=== PATIENT | male | born 1970 | race Caucasian/White ===

== ENCOUNTER 2017-11-06 13:53 | Inpatient (IN) | payer BC ==
[~2017-11-06] VITALS: Ht 177.8 cm; Wt 115.3 kg
[2017-11-06 13:57] VITALS: BP 111/60; PULSE 85; RESP 18; TEMP 98; O2SAT 96
[2017-11-06] MEDS ORDERED: ONDANSETRON HCL 4 MG/2 ML VIAL IV PUSH ONE (16:00)
[2017-11-06] MEDS ORDERED: SODIUM CHLOR 0.9% 1000 ML INJ 1,000 ML IV ONE (16:00)
--- NOTE | 2017-11-06 16:11 | PD ---
HPI Chief Complaint: Cold / Flu Symptoms Time Seen by Provider: 15:51 Travel History International Travel<30 days: No Contact w/Intl Traveler<30days: No Traveled to known affect area: No History of Present Illness HPI 46 year old male presents to emergency department complaining of subjective fever, chills, headache with occasional nausea for approximately 7 days. Patient states that he has had a difficult time drinking fluids because he immediately feels nauseous. He denies vomiting, diarrhea. Denies cough or congestion. Denies sick contacts. 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 Says he visits [place] for several months of the year and usually goes hunting and is always outdoor. Patient states that he is "never sick" and feels like something is really wrong with him. He denies chest pain or shortness of breath. Denies abdominal pain. His medical history is significant for diabetes. Patient denies any unusual rashes or neck stiffness. Patient states that he drinks occasionally but is not a regular activity for him. PFSH Past Medical History Cardiovascular Problems: Yes (HTN) Diabetes: Yes Social History Tobacco Use: No Allergies-Medications (Allergen,Severity, Reaction): Coded Allergies: No Known Allergies (Unverified , 11/06/17) Review of Systems Except as stated in HPI: all other systems reviewed are Neg Physical Exam Narrative GENERAL: Well-developed well-nourished in mild distress SKIN: Warm and dry. HEAD: Atraumatic. Normocephalic. EYES: Pupils equal and round. No scleral icterus. No injection or drainage. ENT: No nasal bleeding or discharge. Mucous membranes pink and moist. NECK: Trachea midline. No JVD. No meningismus CARDIOVASCULAR: Regular rate and rhythm. RESPIRATORY: No accessory muscle use. Clear to auscultation. Breath sounds equal bilaterally. GASTROINTESTINAL: Abdomen protuberant soft, non-tender, nondistended. Hepatic and splenic margins not palpable. MUSCULOSKELETAL: Extremities without clubbing, cyanosis, or edema. No obvious deformities. NEUROLOGICAL: Awake and alert. No obvious cranial nerve deficits. Motor grossly within normal limits. Five out of 5 muscle strength in the arms and legs. Normal speech. PSYCHIATRIC: Appropriate mood and affect; insight and judgment normal. Data Data Last Documented VS Vital Signs Date Time Temp Pulse Resp B/P (MAP) Pulse Ox O2 Delivery O2 Flow Rate FiO2 11/06/17 13:57 98.0 85 18 111/60 (77) 96 Orders Orders Complete Blood Count With Diff (11/06/17 14:09) Comprehensive Metabolic Panel (11/06/17 14:09) Urinalysis - C+S If Indicated (11/06/17 15:59) Ondansetron Inj (Zofran Inj) (11/06/17 16:00) Lipase (11/06/17 15:59) Sodium Chlor 0.9% 1000 Ml Inj (Ns 1000 M (11/06/17 16:00) Influenzae A/B Antigen (11/06/17 15:59) Prochlorperazine Inj (Compazine Inj) (11/06/17 18:00) Blood Culture (11/06/17 18:03) Lactic Acid Sepsis Protocol (11/06/17 18:03) Prothrombin Time / Inr (Pt) (11/06/17 18:18) Act Partial Throm Time (Ptt) (11/06/17 18:18) Ceftriaxone Inj (Rocephin Inj) (11/06/17 18:30) Admit Order (Ed Use Only) (11/06/17 19:12) Labs Laboratory Tests Test 11/06/17 15:50 11/06/17 17:35 11/06/17 18:50 White Blood Count 7.6 TH/MM3 Red Blood Count 4.30 MIL/MM3 Hemoglobin 13.6 GM/DL Hematocrit 37.9 % Mean Corpuscular Volume 88.1 FL Mean Corpuscular Hemoglobin 31.6 PG Mean Corpuscular Hemoglobin Concent 35.9 % Red Cell Distribution Width 15.0 % Platelet Count 145 TH/MM3 Mean Platelet Volume 9.3 FL Neutrophils (%) (Auto) 77.6 % Lymphocytes (%) (Auto) 9.7 % Monocytes (%) (Auto) 10.1 % Eosinophils (%) (Auto) 2.1 % Basophils (%) (Auto) 0.5 % Neutrophils # (Auto) 5.9 TH/MM3 Lymphocytes # (Auto) 0.7 TH/MM3 Monocytes # (Auto) 0.8 TH/MM3 Eosinophils # (Auto) 0.2 TH/MM3 Basophils # (Auto) 0.0 TH/MM3 CBC Comment AUTO DIFF Differential Total Cells Counted 100 Neutrophils % (Manual) 72 % Band Neutrophils % 18 % Lymphocytes % 2 % Monocytes % 4 % Eosinophils % 2 % Neutrophils # (Manual) 7.0 TH/MM3 Myelocytes 2 % Differential Comment FINAL DIFF MANUAL Platelet Estimate LOW Platelet Morphology Comment NORMAL Blood Urea Nitrogen 43 MG/DL Creatinine 1.70 MG/DL Random Glucose 299 MG/DL Total Protein 7.5 GM/DL Albumin 2.5 GM/DL Calcium Level 8.5 MG/DL Alkaline Phosphatase 116 U/L Aspartate Amino Transf (AST/SGOT) 50 U/L Alanine Aminotransferase (ALT/SGPT) 51 U/L Total Bilirubin 0.7 MG/DL Sodium Level 130 MEQ/L Potassium Level 3.8 MEQ/L Chloride Level 95 MEQ/L Carbon Dioxide Level 27.3 MEQ/L Anion Gap 8 MEQ/L Estimat Glomerular Filtration Rate 44 ML/MIN Urine Color YELLOW Urine Turbidity CLEAR Urine pH 5.5 Urine Specific [place] 1.011 Urine Protein TRACE mg/dL Urine Glucose (UA) 150 mg/dL Urine Ketones NEG mg/dL Urine Occult Blood NEG Urine Nitrite NEG Urine Bilirubin NEG Urine Urobilinogen LESS THAN 2.0 MG/DL Urine Leukocyte Esterase NEG Urine RBC 1 /hpf Urine WBC 2 /hpf Microscopic Urinalysis Comment CULT NOT INDICATED Prothrombin Time 10.4 SEC Prothromb Time International Ratio 1.0 RATIO Activated Partial Thromboplast Time 29.4 SEC Lactic Acid Level 0.5 mmol/L MDM Medical Decision Making Medical Screen Exam Complete: Yes Emergency Medical Condition: Yes Differential Diagnosis Influenza, viral syndrome, meningitis Narrative Course 46 year old male presents to emergency department complaining of subjective fever, chills, headache with occasional nausea for approximately 7 days. Patient states that he has had a difficult time drinking fluids because he immediately feels nauseous. He denies vomiting, diarrhea. Denies cough or congestion. Denies sick contacts. 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 Says he visits [place] for several months of the year and usually goes hunting and is always outdoor. Patient states that he is "never sick" and feels like something is really wrong with him. He denies chest pain or shortness of breath. Denies abdominal pain. His medical history is significant for diabetes. Patient denies any unusual rashes or neck stiffness. Patient states that he drinks occasionally but is not a regular activity for him. Vital signs stable. Patient was administered 1 L normal saline with improvement in symptoms. Labs demonstrate elevated creatinine, bandemia, and headaches. There is concern for viral meningitis because of the onset of symptoms, headache. Patient refuses lumbar puncture today. Please see Dr. Fernández's note regarding this patient. Patient will be admitted to observation. Thank you Dr. Alegria particularly this patient. Diagnosis Primary Impression: Bandemia Additional Impressions: Elevated serum creatinine Headache Qualified Codes: G44.89 - Other headache syndrome Admitting Information Admitting Physician Requests: Observation Condition: Stable Jacqueline Maloney Nov 06, 2017 16:11
[2017-11-06 16:22] LABS: ALKALINE PHOSPHATASE 116 U/L (45-117); TOTAL BILIRUBIN ADULT 0.7 MG/DL (0.2-1.0); TOTAL PROTEIN 7.5 GM/DL (6.4-8.2)
[2017-11-06 16:24] LABS: AUTOMATED NEUTROPHIL # 5.9 TH/MM3 (1.8-7.7); BASOPHIL % 0.5 % (0.0-2.0); EOSINOPHIL # 0.2 TH/MM3 (0-0.4); EOSINOPHIL % 2.1 % (0.0-4.0); HEMATOCRIT 37.9 % (39.0-51.0); HEMOGLOBIN 13.6 GM/DL (13.0-17.0); LYMPH % 9.7 % (9.0-44.0); LYMPHOCYTE # 0.7 TH/MM3 (1.0-4.8); MEAN CELL VOLUME 88.1 FL (80.0-100.0); MEAN CORPUSCULAR HEMOGLOBIN 31.6 PG (27.0-34.0); MEAN CORPUSCULAR HGB CONC 35.9 % (32.0-36.0); MEAN PLATELET VOLUME 9.3 FL (7.0-11.0); MONO % 10.1 % (0.0-8.0); MONOCYTE # 0.8 TH/MM3 (0-0.9); NEUT % 77.6 % (16.0-70.0); PLATELET COUNT 145 TH/MM3 (150-450); WHITE BLOOD COUNT 7.6 TH/MM3 (4.0-11.0)
[2017-11-06 16:33] LABS: ALBUMIN 2.5 GM/DL (3.4-5.0); ALT (GPT) 51 U/L (12-78); AST (GOT) 50 U/L (15-37); BICARBONATE 27.3 MEQ/L (21.0-32.0); BLOOD UREA NITROGEN 43 MG/DL (7-18); CALCIUM 8.5 MG/DL (8.5-10.1); CHLORIDE 95 MEQ/L (98-107); GLOMERULAR FILTRATION RATE 44 ML/MIN (>89); GLUCOSE,RANDOM 299 MG/DL (74-106); SODIUM (NA) 130 MEQ/L (136-145)
[2017-11-06 17:11] LABS: BANDS 18 % (0-6); LYMPHOCYTES 2 % (9-44); MONOCYTES 4 % (0-8); MYELOCYTES 2 % (0-0); POLYS (SEG NEUTROPHILS) 72 % (16-70)
[2017-11-06 17:58] LABS: BILIRUBIN, URINE NEG (NEG); BLOOD, URINE NEG (NEG); GLUCOSE,URINE 150 mg/dL (NEG); KETONE, URINE NEG (NEG); NITRITE,URINE NEG (NEG); PH, URINE 5.5 (5.0-8.5); URINE COLOR YELLOW (YELLW/STRAW); URINE LEUKOCYTE ESTERASE NEG (NEG)
[2017-11-06] MEDS ORDERED: PROCHLORPERAZINE INJ 10 MG/2 ML VIAL IV PUSH ONE (18:00)
--- NOTE | 2017-11-06 18:03 | PD ---
Physical Exam Narrative I, Dr. Fernández, have reviewed the advance practice practitioner's documentation and am in agreement, met with the patient face to face, made the diagnosis, and the medical decision making was done by me. *My assessment and Findings: Migraine headache vs. sinus headache vs. influenza vs. viral meningitis 46yo M with PMH of DM here with intermittent fever and throbbing headache for 1 week. Also with generalized muscleaches. Pt said he has some burning in his eyes but no visual changes. Headache is generalized and associated with photophobia. Denies any chest pain, neck pain, sob, cough, n/v, abdominal pain , focal weakness or numbness. Pt has been taking acetaminophen and ibuprofen and fever has gone down but not headache. Last acetaminophen 10am. Labs reviewed, no leukocytosis but there is bandemia at 18%. Mild thrombocytopenia at 145. Glucose is elevated at 299. BUN/creatinine is elevated at 43/1.70. No prior to compare to. UA negative. Influenza negative. Pt given NS IVF, zofran and compazine. Pt has no nuchal rigidity or focal neurologic deficits on exam. However, pt has bandemia, signs of end organ damage and no other source. Blood cultures drawn, lactic acid added and coagulation profile added. Pt is adamantly refusing lumbar puncture. Will cover with ceftriaxone 2gm IV and vancomycin IV for possible meningitis. Pt to be admitted for sepsis with bandemia with no clear source. Data Data Last Documented VS Vital Signs Date Time Temp Pulse Resp B/P (MAP) Pulse Ox O2 Delivery O2 Flow Rate FiO2 11/06/17 13:57 98.0 85 18 111/60 (77) 96 Orders Orders Complete Blood Count With Diff (11/06/17 14:09) Comprehensive Metabolic Panel (11/06/17 14:09) Urinalysis - C+S If Indicated (11/06/17 15:59) Ondansetron Inj (Zofran Inj) (11/06/17 16:00) Lipase (11/06/17 15:59) Sodium Chlor 0.9% 1000 Ml Inj (Ns 1000 M (11/06/17 16:00) Influenzae A/B Antigen (11/06/17 15:59) Prochlorperazine Inj (Compazine Inj) (11/06/17 18:00) Blood Culture (11/06/17 18:03) Lactic Acid Sepsis Protocol (11/06/17 18:03) Prothrombin Time / Inr (Pt) (11/06/17 18:18) Act Partial Throm Time (Ptt) (11/06/17 18:18) Ceftriaxone Inj (Rocephin Inj) (11/06/17 18:30) Admit Order (Ed Use Only) (11/06/17 19:12) Labs Laboratory Tests Test 11/06/17 15:50 11/06/17 17:35 11/06/17 18:50 White Blood Count 7.6 TH/MM3 Red Blood Count 4.30 MIL/MM3 Hemoglobin 13.6 GM/DL Hematocrit 37.9 % Mean Corpuscular Volume 88.1 FL Mean Corpuscular Hemoglobin 31.6 PG Mean Corpuscular Hemoglobin Concent 35.9 % Red Cell Distribution Width 15.0 % Platelet Count 145 TH/MM3 Mean Platelet Volume 9.3 FL Neutrophils (%) (Auto) 77.6 % Lymphocytes (%) (Auto) 9.7 % Monocytes (%) (Auto) 10.1 % Eosinophils (%) (Auto) 2.1 % Basophils (%) (Auto) 0.5 % Neutrophils # (Auto) 5.9 TH/MM3 Lymphocytes # (Auto) 0.7 TH/MM3 Monocytes # (Auto) 0.8 TH/MM3 Eosinophils # (Auto) 0.2 TH/MM3 Basophils # (Auto) 0.0 TH/MM3 CBC Comment AUTO DIFF Differential Total Cells Counted 100 Neutrophils % (Manual) 72 % Band Neutrophils % 18 % Lymphocytes % 2 % Monocytes % 4 % Eosinophils % 2 % Neutrophils # (Manual) 7.0 TH/MM3 Myelocytes 2 % Differential Comment FINAL DIFF MANUAL Platelet Estimate LOW Platelet Morphology Comment NORMAL Blood Urea Nitrogen 43 MG/DL Creatinine 1.70 MG/DL Random Glucose 299 MG/DL Total Protein 7.5 GM/DL Albumin 2.5 GM/DL Calcium Level 8.5 MG/DL Alkaline Phosphatase 116 U/L Aspartate Amino Transf (AST/SGOT) 50 U/L Alanine Aminotransferase (ALT/SGPT) 51 U/L Total Bilirubin 0.7 MG/DL Sodium Level 130 MEQ/L Potassium Level 3.8 MEQ/L Chloride Level 95 MEQ/L Carbon Dioxide Level 27.3 MEQ/L Anion Gap 8 MEQ/L Estimat Glomerular Filtration Rate 44 ML/MIN Lipase 865 U/L Urine Color YELLOW Urine Turbidity CLEAR Urine pH 5.5 Urine Specific [place] 1.011 Urine Protein TRACE mg/dL Urine Glucose (UA) 150 mg/dL Urine Ketones NEG mg/dL Urine Occult Blood NEG Urine Nitrite NEG Urine Bilirubin NEG Urine Urobilinogen LESS THAN 2.0 MG/DL Urine Leukocyte Esterase NEG Urine RBC 1 /hpf Urine WBC 2 /hpf Microscopic Urinalysis Comment CULT NOT INDICATED Prothrombin Time 10.4 SEC Prothromb Time International Ratio 1.0 RATIO Activated Partial Thromboplast Time 29.4 SEC Lactic Acid Level 0.5 mmol/L MDM Supervised Visit with MIHIR: Yes Diagnosis Primary Impression: Sepsis Qualified Codes: A41.9 - Sepsis, unspecified organism Additional Impression: Bandemia Admitting Information Admitting Physician Requests: Admit Kasandra Fernández DO Nov 06, 2017 18:03
[2017-11-06] MEDS ORDERED: cefTRIAXone INJ 2,000 MG in SODIUM CHLORIDE 0.9% INJ 100 ML IV ONE (18:30)
[2017-11-06] MEDS ORDERED: VANCOMYCIN INJ 1,250 MG in SODIUM CHLOR 0.9% 250 ML INJ 250 ML IV ONE (18:30)
[2017-11-06 19:21] LABS: PROTHROMBIN TIME - PATIENT 10.4 SEC (9.8-11.6)
[2017-11-06] MEDS ORDERED: ONDANSETRON HCL 4 MG/2 ML VIAL IVP PRN (19:45)
[2017-11-06] MEDS ORDERED: SENNOSIDES 8.6 MG TAB PO PRN (19:45)
[2017-11-06] MEDS ORDERED: MAGNESIUM HYDROXIDE SUSP 30 ML CUP PO PRN (19:45)
[2017-11-06] MEDS ORDERED: Vancomycin Consult Pharmacy 1 EA OTHER SCH (19:45)
[2017-11-06] MEDS ORDERED: NALOXONE HCL 0.4 MG/ML AMP IV PUSH PRN (19:45)
[2017-11-06] MEDS ORDERED: SODIUM CHLORIDE 0.9% FLUSH 10 ML FLUSH IV FLUSH PRN (19:45)
[2017-11-06] MEDS ORDERED: BISACODYL 10 MG SUPP RECTAL PRN (19:45)
[2017-11-06] MEDS ORDERED: LACTULOSE SYRUP 20 GM/30 ML CUP PO PRN (19:45)
[2017-11-06 20:39] VITALS: BP 117/62
[2017-11-06 20:54] VITALS: BP 119/66; PULSE 92; RESP 18; TEMP 100.1; O2SAT 95
[2017-11-06] MEDS ORDERED: VANCOMYCIN INJ 2,500 MG in SODIUM CHLORID 0.9% 500 ML INJ 500 ML IV ONE (21:00)
[2017-11-06] MEDS: DOCUSATE SODIUM 50 MG/SENNA 8.6 MG TAB PO SCH (21:00)
[2017-11-06] MEDS: SODIUM CHLORIDE 0.9% FLUSH 10 ML FLUSH IV FLUSH SCH (21:08)
[2017-11-06] MEDS: SODIUM CHLOR 0.9% 1000 ML INJ 1,000 ML IV SCH (21:09)
[2017-11-06] MEDS ORDERED: GLYB5TAB3 PO (21:30)
[2017-11-06] MEDS ORDERED: LISI10TA PO (21:30)
[2017-11-06] MEDS ORDERED: ATOR20TA15 PO (21:30)
[2017-11-06] MEDS ORDERED: NEBI20 PO (21:30)
[2017-11-06] MEDS ORDERED: PIOG15TA5 PO (21:30)
[2017-11-06] MEDS ORDERED: METF500T PO (21:30)
--- NOTE | 2017-11-06 21:44 | HHI.HP ---
HPI Service [facility] Primary Care Physician No Primary Care Physician Admission Diagnosis bandemia, elevated creatinine, headache, concern for meningitis Diagnoses: Travel History International Travel<30 Days: No Contact w/Intl Traveler <30 Da: No Traveled to Known Affected Are: No History of Present Illness 46-year-old male with a past medical history significant for hypertension and type 2 diabetes mellitus presents to the emergency department with a seven-day history of fever/chills and generalized malaise. The patient reports he has had a headache with photophobia 3 days. He also reports decreased by mouth intake secondary to not feeling well. There was concern for meningitis in the emergency department however the patient refused LP. Lab values significant for a bandemia with 77% neutrophils, WBC 7.6. Creatinine 1.70, baseline 0.88 done in August of this year. BUN 43. Lactic acid within normal limits. Patient with temperature of 100.1, pulse 92, respiratory rate 18, blood pressure 119/66, pulse ox 95% on room air. Review of Systems Positive fever/chills Denies blurry vision, otorrhea, rhinorrhea. Positive photophobia Denies sore throat and cough No chest pain, palpitations, shortness of breath No abdominal pain Denies constipation/diarrhea/nausea/vomiting Generalized fatigue No rashes Past Family Social History Past Medical History Hypertension Type 2 diabetes mellitus Past Surgical History None Reported Medications Reported Meds & Active Scripts Active Reported Pioglitazone (Pioglitazone HCl) 15 Mg Tab 15 Mg PO DAILY Lisinopril-Hctz 10-12.5 Mg Tab 1 Tab PO DAILY Glyburide 5 Mg Tab 5 Mg PO BID Take with meals at the same time each day Atorvastatin (Atorvastatin Calcium) 20 Mg Tab 20 Mg PO HS Bystolic (Nebivolol) 20 Mg Tab 20 Mg PO DAILY Metformin (Metformin HCl) 500 Mg Tab 500 Mg PO BIDPC Allergies: Coded Allergies: No Known Allergies (Unverified , 11/06/17) Family History Denies family history of CAD/TM Social History Occasional alcohol. Denies tobacco and illicit drugs. Physical Exam Vital Signs Vital Signs Date Time Temp Pulse Resp B/P (MAP) Pulse Ox O2 Delivery O2 Flow Rate FiO2 1/2/18 20:54 100.1 92 18 119/66 (83) 95 11/06/17 20:39 89 117/62 (80) 98 11/06/17 13:57 98.0 85 18 111/60 (77) 96 Physical Exam GENERAL: male lying in bed SKIN: No rashes, ecchymoses or lesions. Cool and dry. HEAD: Atraumatic. Normocephalic. No temporal or scalp tenderness. EYES: Pupils equal round and reactive. Extraocular motions intact. No scleral icterus. No injection or drainage. ENT: Nose without bleeding, purulent drainage or septal hematoma. Throat without erythema, tonsillar hypertrophy or exudate. Uvula midline. Airway patent. NECK: Trachea midline. No JVD or lymphadenopathy. Supple, nontender, no meningeal signs. CARDIOVASCULAR: Regular rate and rhythm without murmurs, gallops, or rubs. RESPIRATORY: Clear to auscultation. Breath sounds equal bilaterally. No wheezes , rales, or rhonchi. GASTROINTESTINAL: Abdomen soft, non-tender, nondistended. No hepato-splenomegaly , or palpable masses. No guarding. MUSCULOSKELETAL: Extremities without clubbing, cyanosis, or edema. No joint tenderness, effusion, or edema noted. No calf tenderness. NEUROLOGICAL: Awake and alert. Cranial nerves II through XII intact. Motor and sensory grossly within normal limits. Normal speech. Laboratory Laboratory Tests Test 11/06/17 15:50 11/06/17 17:35 11/06/17 18:50 White Blood Count 7.6 Red Blood Count 4.30 Hemoglobin 13.6 Hematocrit 37.9 Mean Corpuscular Volume 88.1 Mean Corpuscular Hemoglobin 31.6 Mean Corpuscular Hemoglobin Concent 35.9 Red Cell Distribution Width 15.0 Platelet Count 145 Mean Platelet Volume 9.3 Neutrophils (%) (Auto) 77.6 Lymphocytes (%) (Auto) 9.7 Monocytes (%) (Auto) 10.1 Eosinophils (%) (Auto) 2.1 Basophils (%) (Auto) 0.5 Neutrophils # (Auto) 5.9 Lymphocytes # (Auto) 0.7 Monocytes # (Auto) 0.8 Eosinophils # (Auto) 0.2 Basophils # (Auto) 0.0 CBC Comment AUTO DIFF Differential Total Cells Counted 100 Neutrophils % (Manual) 72 Band Neutrophils % 18 Lymphocytes % 2 Monocytes % 4 Eosinophils % 2 Neutrophils # (Manual) 7.0 Myelocytes 2 Differential Comment FINAL DIFF MANUAL Platelet Estimate LOW Platelet Morphology Comment NORMAL Blood Urea Nitrogen 43 Creatinine 1.70 Random Glucose 299 Total Protein 7.5 Albumin 2.5 Calcium Level 8.5 Alkaline Phosphatase 116 Aspartate Amino Transf (AST/SGOT) 50 Alanine Aminotransferase (ALT/SGPT) 51 Total Bilirubin 0.7 Sodium Level 130 Potassium Level 3.8 Chloride Level 95 Carbon Dioxide Level 27.3 Anion Gap 8 Estimat Glomerular Filtration Rate 44 Urine Color YELLOW Urine Turbidity CLEAR Urine pH 5.5 Urine Specific [place] 1.011 Urine Protein TRACE Urine Glucose (UA) 150 Urine Ketones NEG Urine Occult Blood NEG Urine Nitrite NEG Urine Bilirubin NEG Urine Urobilinogen LESS THAN 2.0 Urine Leukocyte Esterase NEG Urine RBC 1 Urine WBC 2 Microscopic Urinalysis Comment CULT NOT INDICATED Prothrombin Time 10.4 Prothromb Time International Ratio 1.0 Activated Partial Thromboplast Time 29.4 Lactic Acid Level 0.5 Date/Time Source Procedure Growth Status 11/06/17 18:50 Blood Peripheral Aerobic Blood Culture Pending Received 11/06/17 18:50 Blood Peripheral Anaerobic Blood Culture Pending Received 11/06/17 17:35 Nasal Aspirate Influenza Types A,B Antigen (VERA) - Final NEGATIVE FOR FLU A AND B ANTIGEN.... Complete Result Diagram: 11/06/17 1550 11/06/17 1550 Caprini VTE Risk Assessment Caprini VTE Risk Assessment: No/Low Risk (score <= 1) Caprini Risk Assessment Model Point Value = 1 Point Value = 2 Point Value = 3 Point Value = 5 Age 41-60 Minor surgery BMI > 25 kg/m2 Swollen legs Varicose veins or History of unexplained or recurrent spontaneous Oral contraceptives or hormone replacement Sepsis (< 1 month) Serious lung disease, including pneumonia (< 1 month) Abnormal pulmonary function Acute myocardial infarction Congestive heart failure (< 1 month) History of inflammatory bowel disease Medical patient at bed rest Age 61-74 Arthroscopic surgery Major open surgery (> 45 min) Laparoscopic surgery (> 45 min) Malignancy Confined to bed (> 72 hours) Immobilizing plaster cast Central venous access Age >= 75 History of VTE Family history of VTE Factor V Leiden Prothrombin [id number] Lupus anticoagulant Anticardiolipin antibodies Elevated serum homocysteine Heparin-induced thrombocytopenia Other congenital or acquired thrombophilia Stroke (< 1 month) Elective arthroplasty Hip, pelvis, or leg fracture Acute spinal cord injury (< 1 month) Prophylaxis Regimen Total Risk Factor Score Risk Level Prophylaxis Regimen 0-1 Low Early ambulation 2 Moderate Order ONE of the following: *Sequential Compression Device (SCD) *Heparin 5000 units SQ BID 3-4 Higher Order ONE of the following medications: *Heparin 5000 units SQ TID *Enoxaparin/Lovenox 40 mg SQ daily (WT < 150 kg, CrCl > 30 mL/min) *Enoxaparin/Lovenox 30 mg SQ daily (WT < 150 kg, CrCl > 10-29 mL/min) *Enoxaparin/Lovenox 30 mg SQ BID (WT < 150 kg, CrCl > 30 mL/min) AND/OR *Sequential Compression Device (SCD) 5 or more Highest Order ONE of the following medications: *Heparin 5000 units SQ TID (Preferred with Epidurals) *Enoxaparin/Lovenox 40 mg SQ daily (WT < 150 kg, CrCl > 30 mL/min) *Enoxaparin/Lovenox 30 mg SQ daily (WT < 150 kg, CrCl > 10-29 mL/min) *Enoxaparin/Lovenox 30 mg SQ BID (WT < 150 kg, CrCl > 30 mL/min) AND *Sequential Compression Device (SCD) Assessment and Plan Assessment and Plan Assessment/plan: 1. Acute kidney injury Creatinine 1.70, baseline 0.88 Suspect secondary to dehydration with elevated BUN and decreased by mouth intake IV fluid hydration Monitor renal function 2. 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 Type 2 diabetes mellitus Holding home oral anti-hyperglycemics SSI Monitor blood glucose 4. Hypertension Continue home medications 5. Hyperlipidemia Continue home statin FEN Heart healthy diet NS at 125 cc/hr Electrolytes: Monitor and replete prn SCDs Verona Alegria MD Nov 06, 2017 21:43
[2017-11-06] MEDS ORDERED: DEXTROSE 50% IN WATER 50 ML VIAL(D50) IV PUSH PRN (21:45)
[2017-11-06] MEDS ORDERED: GLUCAGON 1 MG/ML VIAL OTHER PRN (21:45)
[2017-11-06] MEDS: ACETAMINOPHEN 325 MG TAB PO PRN (23:03)
[2017-11-06] MEDS ORDERED: ZOLPIDEM TARTRATE 10 MG TAB PO PRN (23:15)
[2017-11-06 23:24] VITALS: BP 130/68; PULSE 104; RESP 18; TEMP 102.1; O2SAT 94
[2017-11-07 03:38] VITALS: BP 117/68; PULSE 95; RESP 18; TEMP 99.4; O2SAT 93
[2017-11-07] MEDS: SODIUM CHLOR 0.9% 1000 ML INJ 1,000 ML IV SCH ×3 (04:20→23:42)
[2017-11-07] MEDS: cefTRIAXone INJ 2,000 MG in SODIUM CHLORIDE 0.9% INJ 100 ML IV SCH ×2 (04:20→17:29)
[2017-11-07 04:26] LABS: AUTOMATED NEUTROPHIL # 7.1 TH/MM3 (1.8-7.7); BASOPHIL % 0.3 % (0.0-2.0); EOSINOPHIL # 0.1 TH/MM3 (0-0.4); EOSINOPHIL % 0.7 % (0.0-4.0); HEMATOCRIT 35.5 % (39.0-51.0); HEMOGLOBIN 12.3 GM/DL (13.0-17.0); LYMPH % 9.3 % (9.0-44.0); LYMPHOCYTE # 0.8 TH/MM3 (1.0-4.8); MEAN CORPUSCULAR HEMOGLOBIN 30.6 PG (27.0-34.0); MEAN CORPUSCULAR HGB CONC 34.8 % (32.0-36.0); MEAN PLATELET VOLUME 8.7 FL (7.0-11.0); MONO % 8.4 % (0.0-8.0); MONOCYTE # 0.7 TH/MM3 (0-0.9); NEUT % 81.3 % (16.0-70.0); PLATELET COUNT 135 TH/MM3 (150-450); RED BLOOD COUNT 4.04 MIL/MM3 (4.50-5.90); RED CELL DISTRIBUTION WIDTH 15.3 % (11.6-17.2); WHITE BLOOD COUNT 8.7 TH/MM3 (4.0-11.0)
[2017-11-07 04:28] VITALS: TEMP 99.6
[2017-11-07 04:38] LABS: BICARBONATE 23.4 MEQ/L (21.0-32.0); CALCIUM 7.9 MG/DL (8.5-10.1); CREATININE 1.41 MG/DL (0.60-1.30)
[2017-11-07 05:25] LABS: TOXIC GRANULATION 2+ (NORMAL)
[2017-11-07] MEDS ORDERED: VANCOMYCIN INJ 1,000 MG in SODIUM CHLOR 0.9% 250 ML INJ 250 ML IV SCH (06:30)
--- NOTE | 2017-11-07 08:23 | HHI.PR ---
Subjective Remarks f/u; fever in no acute distress. headache is slightly better. however still febrile; T max 102.1. family at the bedside. Objective Vitals Vital Signs Date Time Temp Pulse Resp B/P (MAP) Pulse Ox O2 Delivery O2 Flow Rate FiO2 11/07/17 04:28 99.6 11/07/17 03:38 99.4 95 18 117/68 (84) 93 11/06/17 23:24 102.1 104 18 130/68 (88) 94 11/06/17 20:54 100.1 92 18 119/66 (83) 95 11/06/17 20:39 89 117/62 (80) 98 11/06/17 13:57 98.0 85 18 111/60 (77) 96 Result Diagram: 11/07/1732211/07/17322 Objective Remarks GENERAL: This is a well-nourished, well-developed patient, in no apparent distress. CARDIOVASCULAR: Regular rate and regular rhythm without murmurs, gallops, or rubs. RESPIRATORY: Clear to auscultation. Breath sounds equal bilaterally. No wheezes , rales, or rhonchi. GASTROINTESTINAL: Abdomen soft, non-tender, nondistended. Normal, active bowel sounds MUSCULOSKELETAL: Extremities without clubbing, cyanosis, or edema. NEURO: Alert & Oriented x4 to person, place, time, situation. Moves all ext x4 Medications and IVs Inpatient Medications Acetaminophen (Tylenol) 650 mg Q4H PRN PO TEMP > 100.4 Last administered on 11/06at 23:03; Start 11/06/17 at 19:45 Atorvastatin Calcium (Lipitor) 20 mg HS PO ; Start 11/07/17 at 21:00 Bisacodyl (Dulcolax Supp) 10 mg DAILY PRN RECTAL SEVERE CONSITIPATION; Start at 19:45 Ceftriaxone Sodium 2000 mg/ Sodium Chloride 100 ml @ 200 mls/hr Q12H IV Last administered on 11/07/17at 04:20; Start 11/07/17 at 06:00 Dextrose (D50w (Vial) Inj) 50 ml UNSCH PRN IV PUSH HYPOGLYCEMIA-SEE COMMENTS; Start 11/06/17 at 21:45 Glucagon (Glucagon Inj) 1 mg UNSCH PRN OTHER HYPOGLYCEMIA-SEE COMMENTS; Start 11/06/17 at 21:45 Hydrochlorothiazide (Microzide) 12.5 mg DAILY PO ; Start 11/07/17 at 09:00 Insulin Aspart (NovoLOG SUPPLEMENTAL SCALE) 1 ACHS SLIDING SCALE SQ ; Start 11/07/17 at 08:00 Lactulose (Lactulose Liq) 30 ml DAILY PRN PO SEVERE CONSITIPATION; Start at 19:45 Lisinopril (Prinivil) 10 mg DAILY PO ; Start 11/07/17 at 09:00 Magnesium Hydroxide (Milk Of Magnesia Liq) 30 ml Q12H PRN PO Mild constipation ; Start 11/06/17 at 19:45 Naloxone HCl (Narcan Inj) 0.4 mg UNSCH PRN IV PUSH SEE LABEL COMMENTS; Start at 19:45 Nebivolol (Bystolic) 20 mg DAILY PO ; Start 11/07/17 at 09:00 Ondansetron HCl (Zofran Inj) 4 mg Q6H PRN IVP NAUSEA OR VOMITING; Start at 19:45 Pharmacy Profile Note 0 ml @ 0 mls/hr UNSCH OTHER ; Start 11/06/17 at 19:45 Prochlorperazine Edisylate (Compazine Inj) 10 mg ONCE ONCE IV PUSH Last administered on 11/06/17at 19:18; Start 11/06/17 at 18:00; Stop 11/06/17 at 18:01; Status DC Senna/Docusate Sodium (Bernarda-Colace) 1 tab BID PO ; Start 11/06/17 at 21:00 Sennosides (Senokot) 17.2 mg Q12H PRN PO Moderate constipation; Start 11/06/17 at 19:45 Sodium Chloride (NS Flush) 2 ml BID IV FLUSH Last administered on 11/06/17at 21: 08; Start 11/06/17 at 21:00 Vancomycin HCl 2500 mg/Sodium Chloride 525 ml @ 250 mls/hr ONCE ONCE IV Last administered on 11/06/17at 20:17; Start 11/06/17 at 21:00; Stop 11/06/17 at 23:05; Status DC Zolpidem Tartrate (Ambien) 10 mg HS PRN PO insomia Last administered on at 23:27; Start 11/06/17 at 23:15 A/P Assessment and Plan 1. Acute kidney injury- improving. Suspect secondary to dehydration with elevated BUN and decreased by mouth intake continue IV fluid hydration Monitor renal function 2. 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 Type 2 diabetes mellitus Holding home oral anti-hyperglycemics SSI Monitor blood glucose 4. Hypertension Continue home medications 5. Hyperlipidemia Continue home statin 6. elevated lipase- no abdominal pain- will repeat the level today. SCDs Mohamud Burgos MD Nov 07, 2017 08:23
[2017-11-07 08:40] VITALS: BP 132/82; PULSE 89; RESP 18; TEMP 97.8; O2SAT 94
[2017-11-07] MEDS: SODIUM CHLORIDE 0.9% FLUSH 10 ML FLUSH IV FLUSH SCH ×2 (09:23→23:41)
[2017-11-07] MEDS: INSULIN ASPART SUPPLEMENTAL SCALE SQ SCH ×4 (09:23→23:40)
[2017-11-07] MEDS: NEBIVOLOL 10 MG TAB PO SCH (09:25)
[2017-11-07] MEDS: HYDROCHLOROTHIAZIDE 12.5 MG CAP PO SCH (09:25)
[2017-11-07] MEDS: DOCUSATE SODIUM 50 MG/SENNA 8.6 MG TAB PO SCH ×2 (09:27→21:00)
[2017-11-07] MEDS: LISINOPRIL 10 MG TAB PO SCH (09:27)
[2017-11-07] MEDS ORDERED: diphenhydrAMINE HCL 25 MG CAP PO PRN (10:45)
[2017-11-07 12:00] VITALS: BP 120/70; PULSE 82; RESP 18; TEMP 98.8; O2SAT 94
[2017-11-07] MEDS: VANCOMYCIN INJ 2,000 MG in SODIUM CHLORID 0.9% 500 ML INJ 500 ML IV SCH (15:58)
[2017-11-07 16:00] VITALS: BP 118/71; PULSE 84; RESP 18; TEMP 99.7; O2SAT 95
--- NOTE | 2017-11-07 17:18 | MB ---
cc: ORLANDO CORONA MD, FRANKLYN F. MD DATE OF CONSULTATION: 11/07/2017 REASON FOR CONSULTATION: Sepsis. HISTORY OF PRESENT ILLNESS: This is a 46-year-old white male who presented to the emergency department yesterday evening with flu-like illness. The patient describes chills, headaches, nausea and fever for approximately seven days prior. The patient states that he started feeling sick suddenly on , October 29. He started experiencing chills and aches in his knees and ankles, and nausea. He states that he would take Tylenol and Aleve and the fever went away but would come back so, therefore, he was constantly taking the anti-pyretic medications. He states he would feel better at times and prior to coming to the hospital the days before the fever was less but it would come back mostly in the evenings. He also stated that he started getting a headache as well before he came to the emergency department. He denies soreness of the throat, neck stiffness, back pain or dysuria. He was evaluated in the emergency department and he had normal temperature, normal white count. Lactic acid level was also normal. However, his WBC, although normal, revealed band count of 18%. The patient was offered to have a lumbar puncture performed but he refused. He had blood cultures taken yesterday evening. Blood culture has Gram-positive cocci in each set, one bottle of each. His temperature was 102 degrees yesterday evening. He also had renal insufficiency with creatinine of 1.70 yesterday evening as well. The patient's states that she pulled a tick from his abdomen about a [id number]-[id number]-half ago. The patient often goes hunting. He last went hunting approximately a fjil-chj-[id number]-half ago in [place]. 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 He last worked there three months ago. He has not been exposed to any known sick contacts. He lives with his and two children and they are in good health. He has no cough, shortness of breath, or muscle aches. The patient had a cap placed on a tooth about three weeks ago. The patient also was noted to have an area of erythema of the right great toe with streaks up the right foot but he took care of it with local topical antibiotics and it resolved. He denied photophobia, or notes that he had some eye pain at the beginning of this illness. PAST MEDICAL HISTORY Diabetes mellitus, hypertension. ALLERGIES NO KNOWN DRUG ALLERGIES. MEDICATIONS 1. Vancomycin. 2. Ceftriaxone. 3. Prinivil. 4. Bystolic. 5. Hydrochlorothiazide. 6. Insulin. 7. Lipitor. 8. Ambien p.r.n. SOCIAL HISTORY: Rare alcohol use. No tobacco. No illicit drug use. FAMILY HISTORY: Noncontributory. REVIEW OF SYSTEMS: Pertinent as mentioned above, including fever, chills, headache, nausea, aches in the knees and ankles. In addition the patient also notes decreased appetite. PHYSICAL EXAMINATION: The patient is a moderately obese male who is in no acute distress. VITAL SIGNS: Temperature 98.8, blood pressure 120/70, respiratory rate 18, heart rate 82. HEENT: The head is atraumatic. Extraocular movements grossly intact, pupils reactive to light. No icterus. Oropharynx has moist mucosa. No visible lesions. Neck: Supple without adenopathy. Lungs: Clear breath sounds which are diminished. Heart: Regular S1-S2. No audible murmurs, rubs or gallops. Abdomen: Bowel sounds present, obese, the bowel sounds are diminished, nontender. Few healed nodular skin lesion of the abdomen anteriorly below the umbilicus. Rectal: Not performed. Extremities: No clubbing, cyanosis or edema. Skin: No rash. Neuro: No gross focal findings. Psych: Patient calm and cooperative. IMPRESSION 1. Sepsis with gram-positive bacteria in blood cultures. The patient presented with chills and has bandemia. Etiology unclear. 1. Fever. 2. Elevated lipase. 3. Acute kidney disease. RECOMMENDATIONS 1. Continue vancomycin. 2. Continue ceftriaxone. 3. Monitor blood cultures. 4. Monitor the temperature and white blood cell count and observe the patient closely for new signs of infection. Thank you this consultation. I will follow the patient's progress along with you and make further recommendations on followup if necessary. Rj Hendricks MD FD/THELMA /4:02 PM /4:28 PM
[2017-11-07] MEDS ORDERED: PANTOPRAZOLE SOD 40 MG DELAYED RELEASE TAB PO ONE (19:45)
[2017-11-07 20:00] VITALS: BP 124/71; PULSE 82; RESP 17; TEMP 99.7; O2SAT 94
[2017-11-07] MEDS: ATORVASTATIN 20 MG TAB PO SCH (23:39)
[2017-11-08] VITALS: BP 131/76; PULSE 77; RESP 17; TEMP 97.6; O2SAT 96
[2017-11-08 04:00] VITALS: BP 121/82; PULSE 66; RESP 17; TEMP 97.9; O2SAT 96
[2017-11-08] MEDS: SODIUM CHLOR 0.9% 1000 ML INJ 1,000 ML IV SCH ×3 (04:20→21:53)
[2017-11-08] MEDS: cefTRIAXone INJ 2,000 MG in SODIUM CHLORIDE 0.9% INJ 100 ML IV SCH ×2 (06:00→17:16)
[2017-11-08] MEDS: SODIUM CHLORIDE 0.9% FLUSH 10 ML FLUSH IV FLUSH SCH ×2 (07:50→21:53)
[2017-11-08 08:00] VITALS: BP 140/86; PULSE 62; RESP 19; TEMP 97.2; O2SAT 95
[2017-11-08 08:21] LABS: HEMATOCRIT 35.1 % (39.0-51.0); HEMOGLOBIN 12.3 GM/DL (13.0-17.0); MEAN CELL VOLUME 90.1 FL (80.0-100.0); MEAN CORPUSCULAR HEMOGLOBIN 31.5 PG (27.0-34.0); MEAN PLATELET VOLUME 9.6 FL (7.0-11.0); PLATELET COUNT 214 TH/MM3 (150-450); RED CELL DISTRIBUTION WIDTH 15.3 % (11.6-17.2); WHITE BLOOD COUNT 9.8 TH/MM3 (4.0-11.0)
[2017-11-08 08:31] LABS: CALCIUM 7.8 MG/DL (8.5-10.1); CREATININE 1.08 MG/DL (0.60-1.30)
[2017-11-08 09:34] LABS: BANDS 6 % (0-6); BASOPHILS 1 % (0-2); LYMPHOCYTES 23 % (9-44); METAMYELOCYTES 1 % (0-1); MONOCYTES 11 % (0-8); MYELOCYTES 1 % (0-0); NEUTROPHIL # MANUAL DIFF 6.4 TH/MM3 (1.8-7.7); POLYS (SEG NEUTROPHILS) 57 % (16-70)
[2017-11-08] MEDS: INSULIN ASPART SUPPLEMENTAL SCALE SQ SCH ×4 (09:45→21:53)
[2017-11-08] MEDS: LISINOPRIL 10 MG TAB PO SCH (09:47)
[2017-11-08] MEDS: VANCOMYCIN INJ 2,000 MG in SODIUM CHLORID 0.9% 500 ML INJ 500 ML IV SCH (09:47)
[2017-11-08] MEDS: PANTOPRAZOLE SOD 40 MG DELAYED RELEASE TAB PO SCH (09:48)
[2017-11-08] MEDS: HYDROCHLOROTHIAZIDE 12.5 MG CAP PO SCH (09:48)
[2017-11-08] MEDS: DOCUSATE SODIUM 50 MG/SENNA 8.6 MG TAB PO SCH ×2 (09:48→21:00)
[2017-11-08] MEDS: NEBIVOLOL 10 MG TAB PO SCH (09:48)
[2017-11-08 11:28] VITALS: BP 141/84; PULSE 60; RESP 20; TEMP 96.9; O2SAT 96
--- NOTE | 2017-11-08 13:26 | HHI.IDPN ---
Note Infectious Disease Note Patient says he feels better. Not having headache. Temp lower. Denies chills. 46-year-old white male who presented to the emergency department yesterday evening with flu-like illness. The patient describes chills, headaches, nausea and fever for approximately seven days prior. The patient states that he started feeling sick suddenly on , October 29. He started experiencing chills and aches in his knees and ankles, and nausea. He states that he would take Tylenol and Aleve and the fever went away but would come back so, therefore, he was constantly taking the anti-pyretic medications. PAST MEDICAL HISTORY Diabetes mellitus, hypertension. ALLERGIES NO KNOWN DRUG ALLERGIES. MEDICATIONS 1. Vancomycin. 2. Ceftriaxone. PHYSICAL EXAMINATION: GENERAL: no acute distress. HEENT: The head is atraumatic. Extraocular movements grossly intact, pupils reactive to light. No icterus. Oropharynx has moist mucosa. No visible lesions. Neck: Supple without adenopathy. Lungs: Clear breath sounds. Heart: Regular S1-S2. No audible murmurs, rubs or gallops. Abdomen: Bowel sounds present, obese, the bowel sounds are diminished, nontender. Few healed nodular skin lesion of the abdomen anteriorly below the umbilicus. Extremities: No clubbing, cyanosis or edema. Skin: No rash. Neuro: No gross focal findings. Psych: Patient calm and cooperative. IMPRESSION 1. Sepsis with gram-positive bacteria in blood cultures. ID and sensitivity pending. Headache is improved. Not showing signs of meningitis. 2. Fever. Temp lower. 3. Elevated lipase. 4. Acute kidney disease. RECOMMENDATIONS 1. Continue vancomycin. 2. Continue ceftriaxone. 3. Repeat the blood cultures today. 5. Monitor the ID/sensitivity of the current blood culture. 4. Monitor the temperature and white blood cell count. Will not be ready for discharge until today's blood culture comes back negative. He may require IV antibiotics on discharge. Rj Hendricks MD Nov 08, 2017 13:26
--- NOTE | 2017-11-08 13:46 | HHI.PR ---
Subjective Remarks Resting in bed, at the bedside, no cough no abdominal pain No fever overnight, no leukocytosis Objective Vitals Vital Signs Date Time Temp Pulse Resp B/P (MAP) Pulse Ox O2 Delivery O2 Flow Rate FiO2 11/08/17 11:28 96.9 60 20 141/84 (103) 96 11/08/17 08:00 97.2 62 19 140/86 (104) 95 11/08/17 04:00 97.9 66 17 121/82 (95) 96 11/08/17 00:00 97.6 77 17 131/76 (94) 96 11/07/17 20:00 99.7 82 17 124/71 (88) 94 11/07/17 16:00 99.7 84 18 118/71 (87) 95 I/O 11/07/17 11/07/17 11/07/17 11/08/17 11/08/17 11/08/17 07:00 15:00 23:00 07:00 15:00 23:00 Intake Total 1080 ml 1340 ml 120 ml Output Total 800 ml Balance 280 ml 1340 ml 120 ml Intake Oral 480 ml 240 ml 120 ml IV Total 600 ml 1100 ml Output Urine Total 800 ml # Voids 2 2 # Bowel Movements 2 Result Diagram: 11/08/17 0632 11/08/17 0632 Objective Remarks GENERAL: This is a well-nourished, well-developed patient, in no apparent distress. SKIN: No rashes, warm and dry HEAD: Atraumatic. Normocephalic. EYES: Pupils equal round and reactive. Extraocular motions intact. No scleral icterus. ENT: Nose without bleeding, or drainage, Airway patent. NECK: Trachea midline. Supple CARDIOVASCULAR: Regular rate and rhythm without murmurs, gallops, or rubs. RESPIRATORY: Fair air entry bilaterally. No wheezes, rales, or rhonchi. GASTROINTESTINAL: Abdomen soft, non-tender, nondistended. Positive bowel sounds MUSCULOSKELETAL: Extremities without clubbing, cyanosis, or edema. Pedal pulses appreciated NEUROLOGICAL: Awake and alert. Moves all extremity. Normal speech.no focal neurological deficit A/P Assessment and Plan 1. Acute kidney injury- improving. Suspect secondary to dehydration with elevated BUN and decreased by mouth intake continue IV fluid hydration Monitor renal function 2. sepsis/ Concern for meningitis given [employer] symptoms Patient refuses LP Blood cultures pending Continue antibiotic coverage for meningitis for now;Rocephin/vancomycin consult ID, discussed with Dr. Hendricks 3. Type 2 diabetes mellitus Holding home oral anti-hyperglycemics SSI Monitor blood glucose 4. Hypertension Continue home medications 5. Hyperlipidemia Continue home statin 6. elevated lipase-without abdominal pain-trending down continue trending lipase level, continue iv fluid Eran Plasencia MD Nov 08, 2017 13:46
[2017-11-08 16:00] VITALS: BP 156/84; PULSE 62; RESP 20; TEMP 97.4; O2SAT 96
[2017-11-08 20:00] VITALS: BP 148/88; PULSE 61; RESP 20; TEMP 97.2; O2SAT 96
[2017-11-08] MEDS: ATORVASTATIN 20 MG TAB PO SCH (21:52)
[2017-11-09] VITALS: BP 166/87; PULSE 55; RESP 16; TEMP 97.9; O2SAT 94
[2017-11-09] MEDS ORDERED: PHARMACY ORDERED LAB ONE (03:45)
[2017-11-09 04:50] VITALS: BP 136/86; PULSE 69; RESP 16; TEMP 96.5; O2SAT 97
[2017-11-09] MEDS: VANCOMYCIN INJ 2,000 MG in SODIUM CHLORID 0.9% 500 ML INJ 500 ML IV SCH ×2 (06:00→16:57)
[2017-11-09] MEDS: SODIUM CHLOR 0.9% 1000 ML INJ 1,000 ML IV SCH ×2 (06:02→23:10)
[2017-11-09] MEDS: cefTRIAXone INJ 2,000 MG in SODIUM CHLORIDE 0.9% INJ 100 ML IV SCH ×2 (06:02→16:50)
[2017-11-09 08:00] VITALS: BP 167/90; PULSE 56; RESP 18; TEMP 96.7; O2SAT 97
[2017-11-09] MEDS: SODIUM CHLORIDE 0.9% FLUSH 10 ML FLUSH IV FLUSH SCH ×2 (09:00→23:09)
[2017-11-09] MEDS: DOCUSATE SODIUM 50 MG/SENNA 8.6 MG TAB PO SCH ×2 (09:00→23:09)
[2017-11-09] MEDS: NEBIVOLOL 10 MG TAB PO SCH (10:11)
[2017-11-09] MEDS: LISINOPRIL 10 MG TAB PO SCH (10:11)
[2017-11-09] MEDS: HYDROCHLOROTHIAZIDE 12.5 MG CAP PO SCH (10:11)
[2017-11-09] MEDS: INSULIN ASPART SUPPLEMENTAL SCALE SQ SCH ×4 (10:12→23:20)
[2017-11-09] MEDS: PANTOPRAZOLE SOD 40 MG DELAYED RELEASE TAB PO SCH (10:12)
[2017-11-09 12:00] VITALS: BP 170/88; PULSE 57; RESP 20; TEMP 96.9; O2SAT 98
--- NOTE | 2017-11-09 12:07 | HHI.IDPN ---
Note Infectious Disease Note Patient says he feels okay Afebrile. Temp lower. Denies chills,QUIJANO,SOB. Lipase remain elevated. Denies abdominal pain. Blood culture ID and sensitivity still pending. Mom at bedside reports that patient was noted to have "hole in the heart" or some other heart abnormality as a child. In high school he had to have cardiac test for sports. 46-year-old white male who presented to the emergency department yesterday evening with flu-like illness. The patient describes chills, headaches, nausea and fever for approximately seven days prior. The patient states that he started feeling sick suddenly on , October 29. He started experiencing chills and aches in his knees and ankles, and nausea. He states that he would take Tylenol and Aleve and the fever went away but would come back so, therefore, he was constantly taking the anti-pyretic medications. PAST MEDICAL HISTORY Diabetes mellitus, hypertension. ALLERGIES NO KNOWN DRUG ALLERGIES. MEDICATIONS 1. Vancomycin. 2. Ceftriaxone. OBJECTIVE: Vital Signs Date Time Temp Pulse Resp B/P (MAP) Pulse Ox O2 Delivery O2 Flow Rate FiO2 11/09/17 08:00 96.7 56 18 167/90 (115) 97 11/09/17 04:50 96.5 69 16 136/86 (103) 97 11/09/17 00:00 97.9 55 16 166/87 (113) 94 11/08/17 20:00 97.2 61 20 148/88 (108) 96 11/08/17 16:00 97.4 62 20 156/84 (108) 96 Laboratory Tests Test 11/08/17 06:32 White Blood Count 9.8 TH/MM3 Red Blood Count 3.90 MIL/MM3 Hemoglobin 12.3 GM/DL Hematocrit 35.1 % Mean Corpuscular Volume 90.1 FL Mean Corpuscular Hemoglobin 31.5 PG Mean Corpuscular Hemoglobin Concent 35.0 % Red Cell Distribution Width 15.3 % Platelet Count 214 TH/MM3 Mean Platelet Volume 9.6 FL CBC Comment AUTO DIFF Differential Total Cells Counted 100 Neutrophils % (Manual) 57 % Band Neutrophils % 6 % Lymphocytes % 23 % Monocytes % 11 % Basophils % 1 % Neutrophils # (Manual) 6.4 TH/MM3 Metamyelocytes 1 % Myelocytes 1 % Differential Comment FINAL DIFF MANUAL Platelet Estimate NORMAL Platelet Morphology Comment NORMAL Laboratory Tests Test 11/08/17 06:32 Blood Urea Nitrogen 21 MG/DL Creatinine 1.08 MG/DL Random Glucose 186 MG/DL Calcium Level 7.8 MG/DL Sodium Level 137 MEQ/L Potassium Level 3.3 MEQ/L Chloride Level 102 MEQ/L Carbon Dioxide Level 23.0 MEQ/L Anion Gap 12 MEQ/L Estimat Glomerular Filtration Rate 74 ML/MIN Lipase 667 U/L Microbiology Date/Time Source Procedure Growth Status 11/09/17 06:31 Blood Peripheral Aerobic Blood Culture Pending Received 11/09/17 06:31 Blood Peripheral Anaerobic Blood Culture Pending Received 11/08/17 17:49 Blood Peripheral Aerobic Blood Culture - Preliminary NO GROWTH IN 1 DAY Resulted 11/08/17 17:49 Blood Peripheral Anaerobic Blood Culture - Preliminary NO GROWTH IN 1 DAY Resulted 11/06/17 18:50 Blood Peripheral Aerobic Blood Culture - Preliminary Staph Sp Coagulase Negative Resulted 11/06/17 18:50 Blood Peripheral Anaerobic Blood Culture - Preliminary NO GROWTH IN 3 DAYS Resulted 11/06/17 18:50 Blood Peripheral Aerobic Blood Culture - Preliminary Staph Sp Coagulase Negative Resulted 11/06/17 18:50 Blood Peripheral Anaerobic Blood Culture - Preliminary NO GROWTH IN 3 DAYS Resulted 11/06/17 17:35 Nasal Aspirate Influenza Types A,B Antigen (VERA) - Final NEGATIVE FOR FLU A AND B ANTIGEN.... Complete PHYSICAL EXAMINATION: GENERAL: no acute distress. HEENT: The head is atraumatic. Extraocular movements grossly intact, pupils reactive to light. No icterus. Oropharynx has moist mucosa. No visible lesions. Neck: Supple without adenopathy. Lungs: Clear breath sounds. Heart: Regular S1-S2. No audible murmurs, rubs or gallops. Abdomen: Bowel sounds present, obese, the bowel sounds are diminished, nontender. Few healed nodular skin lesion of the abdomen anteriorly below the umbilicus. Extremities: No clubbing, cyanosis or edema. Skin: No rash. Neuro: No gross focal findings. Psych: Patient calm and cooperative. IMPRESSION 1. Sepsis with gram-positive bacteria in blood cultures. ID and sensitivity pending. Spoke to microbiology about the positive blood cultures. the machine is not yet able to identify the organism and provide sensitivities. I was notified that it may be out tomorrow. Will follow. Headache is improved. Not showing signs of meningitis. 2. Fever. Temp lower. 3. Elevated lipase. 4. Acute kidney disease. improving. RECOMMENDATIONS 1. Continue vancomycin. 2. Continue ceftriaxone. 3. Follow the repeat the blood cultures from 11/08/17. 5. Monitor the ID/sensitivity of the current blood culture. 4. 2D ECHO to evaluate for endocarditis. 5. Ct scan of the abdomen to look for source. Discharge decision pending work up. He may require IV antibiotics on discharge. I will follow over weekend. Rj Hendricks MD Nov 09, 2017 12:07
[2017-11-09] MEDS ORDERED: DIATRIZOATE MEGLUM/DIATRIZOATE SOD 9 ML CUP PO ONE (12:45)
--- NOTE | 2017-11-09 13:15 | RADRPT ---
EXAM DATE/TIME: 11/09/2017 12:51 [facility] COMPARISON: No previous studies available for comparison. INDICATIONS : Fever, vomiting, nausea, cough x5 days. MEDICAL HISTORY : None. SURGICAL HISTORY : None. ENCOUNTER: Initial ACUITY: 4 - 6 days PAIN SCORE: 0/10 LOCATION: Bilateral chest FINDINGS: PA and lateral views of the chest demonstrate the lungs to be symmetrically aerated without evidence of mass, infiltrate or effusion. The cardiomediastinal contours are unremarkable. Osseous structure s are intact. CONCLUSION: No acute disease. Juan C Denise MD FACR on November 09, 2017 at 13:12 Board Certified Radiologist. This report was verified electronically.
[2017-11-09 13:44] LABS: ALBUMIN 2.2 GM/DL (3.4-5.0); ALKALINE PHOSPHATASE 79 U/L (45-117); ALT (GPT) 55 U/L (12-78); AST (GOT) 58 U/L (15-37); BICARBONATE 21.2 MEQ/L (21.0-32.0); BLOOD UREA NITROGEN 18 MG/DL (7-18); CALCIUM 8.4 MG/DL (8.5-10.1); CHLORIDE 105 MEQ/L (98-107); CREATININE 0.99 MG/DL (0.60-1.30); GLOMERULAR FILTRATION RATE 81 ML/MIN (>89); GLUCOSE,RANDOM 336 MG/DL (74-106); LIPASE 512 U/L (73-393); SODIUM (NA) 136 MEQ/L (136-145); TOTAL BILIRUBIN ADULT 0.3 MG/DL (0.2-1.0)
[2017-11-09 16:00] VITALS: BP 164/94; PULSE 56; RESP 19; TEMP 97.4; O2SAT 98
[2017-11-09] MEDS: ACETAMINOPHEN 325 MG TAB PO PRN (16:51)
--- NOTE | 2017-11-09 18:58 | RADRPT ---
EXAM DATE/TIME: 11/09/2017 18:38 [facility] COMPARISON: No previous studies available for comparison. INDICATIONS : Fever with bactremia. ORAL CONTRAST: Prescribed oral contrast ingested. RADIATION DOSE: 19.79 CTDIvol (mGy) MEDICAL HISTORY : Cardiovascular disease. Hypertension. Diabetes mellitus type 2. SURGICAL HISTORY : None. ENCOUNTER: Initial ACUITY: 1 day PAIN SCALE: 0/10 LOCATION: abdomen TECHNIQUE: Volumetric scanning of the abdomen and pelvis was performed. Using automated exposure control and ad justment of the mA and/or kV according to patient size, radiation dose was kept as low as reasonably achievable to obtain optimal diagnostic quality images. DICOM format image data is available electro nically for review and comparison. FINDINGS: There are small bilateral pleural effusions and some groundglass opacity at the bases, probably mild edema or pneumonitis. No acute findings spleen, adrenals or pancreas. Small cyst central liver. No calcified gallstones or biliary ductal dilatation. Nonobstructing 1 mm and 3 mm calcifications in the right kidney. Left kidn ey unremarkable. No free fluid. No bowel obstruction. No adenopathy. CONCLUSION: 1. Small bilateral pleural effusions with mild edema pattern and subsegmental consolidation in the ri ght lower lobe. 2. No acute findings within the abdomen and pelvis. Small nonobstructing right renal calculi. Small c yst central liver. No bowel obstruction, free fluid or free air. Finesse Feng MD on November 09, 2017 at 18:52 Board Certified Radiologist. This report was verified electronically.
--- NOTE | 2017-11-09 19:43 | HHI.PR ---
Subjective Remarks Patient still afebrile, no headache no cough no dysuria Objective Vitals Vital Signs Date Time Temp Pulse Resp B/P (MAP) Pulse Ox O2 Delivery O2 Flow Rate FiO2 11/09/17 16:00 97.4 56 19 164/94 (117) 98 11/09/17 12:00 96.9 57 20 170/88 (115) 98 11/09/17 08:00 96.7 56 18 167/90 (115) 97 11/09/17 04:50 96.5 69 16 136/86 (103) 97 11/09/17 00:00 97.9 55 16 166/87 (113) 94 11/08/17 20:00 97.2 61 20 148/88 (108) 96 I/O 11/08/17 11/08/17 11/08/17 11/09/17 11/09/17 11/09/17 07:00 15:00 23:00 07:00 15:00 23:00 Intake Total 1340 ml 120 ml 1100 ml 1100 ml 1620 ml Output Total 901 ml 1000 ml 1200 ml Balance 1340 ml 120 ml 199 ml 100 ml 420 ml Intake Oral 240 ml 120 ml 100 ml 1000 ml IV Total 1100 ml 1000 ml 1100 ml 620 ml Output Urine Total 900 ml 1000 ml 1200 ml Stool Total 1 ml # Voids 2 # Bowel Movements 1 Result Diagram: 11/08/17 0632 11/09/17 1245 Objective Remarks GENERAL: This is a well-nourished, well-developed patient, in no apparent distress. SKIN: No rashes, warm and dry HEAD: Atraumatic. Normocephalic. EYES: Pupils equal round and reactive. Extraocular motions intact. No scleral icterus. ENT: Nose without bleeding, or drainage, Airway patent. NECK: Trachea midline. Supple CARDIOVASCULAR: Regular rate and rhythm without murmurs, gallops, or rubs. RESPIRATORY: Fair air entry bilaterally. No wheezes, rales, or rhonchi. GASTROINTESTINAL: Abdomen soft, non-tender, nondistended. Positive bowel sounds MUSCULOSKELETAL: Extremities without clubbing, cyanosis, or edema. Pedal pulses appreciated NEUROLOGICAL: Awake and alert. Moves all extremity. Normal speech.no focal neurological deficit A/P Assessment and Plan 11/09/17: Continue following blood culture, discussed with ID, will do CT scan of the abdomen and pelvic and chest x-ray as well as 2-D echo A/P: 1. Acute kidney injury- improving. Suspect secondary to dehydration with elevated BUN and decreased by mouth intake continue IV fluid hydration Monitor renal function 2. sepsis/ Concern for meningitis given [employer]IR symptoms and fever on admission Patient refuses LP in ED Blood cultures staph coag negative Continue antibiotic coverage for meningitis for now;Rocephin/vancomycin consult ID, discussed with Dr. Hendricks 3. Type 2 diabetes mellitus Holding home oral anti-hyperglycemics SSI Monitor blood glucose 4. Hypertension Continue home medications 5. Hyperlipidemia Continue home statin 6. elevated lipase-without abdominal pain- continue trending lipase level, continue iv fluid Eran Plasencia MD Nov 09, 2017 19:43
[2017-11-09 20:00] VITALS: BP 138/66; PULSE 59; RESP 16; TEMP 96.2; O2SAT 98
[2017-11-09] MEDS: ATORVASTATIN 20 MG TAB PO SCH (23:09)
[2017-11-10] VITALS: BP 151/79; PULSE 52; RESP 18; TEMP 97.2; O2SAT 97
[2017-11-10] MEDS: VANCOMYCIN INJ 2,000 MG in SODIUM CHLORID 0.9% 500 ML INJ 500 ML IV SCH ×2 (03:15→16:00)
[2017-11-10 04:00] VITALS: BP 170/85; PULSE 57; RESP 18; TEMP 96.6; O2SAT 97
[2017-11-10] MEDS: SODIUM CHLOR 0.9% 1000 ML INJ 1,000 ML IV SCH ×3 (06:20→21:09)
[2017-11-10] MEDS: cefTRIAXone INJ 2,000 MG in SODIUM CHLORIDE 0.9% INJ 100 ML IV SCH ×2 (06:20→17:25)
[2017-11-10 08:00] VITALS: BP 174/94; PULSE 65; RESP 17; TEMP 96.4; O2SAT 95
[2017-11-10] MEDS: NEBIVOLOL 10 MG TAB PO SCH (08:16)
[2017-11-10] MEDS: HYDROCHLOROTHIAZIDE 12.5 MG CAP PO SCH (08:20)
[2017-11-10] MEDS: SODIUM CHLORIDE 0.9% FLUSH 10 ML FLUSH IV FLUSH SCH ×2 (08:20→21:00)
[2017-11-10] MEDS: INSULIN ASPART SUPPLEMENTAL SCALE SQ SCH ×4 (08:20→21:04)
[2017-11-10] MEDS: PANTOPRAZOLE SOD 40 MG DELAYED RELEASE TAB PO SCH (08:21)
[2017-11-10] MEDS: DOCUSATE SODIUM 50 MG/SENNA 8.6 MG TAB PO SCH ×2 (08:21→21:00)
[2017-11-10] MEDS: LISINOPRIL 10 MG TAB PO SCH (08:21)
[2017-11-10 12:00] VITALS: BP 187/96; PULSE 61; RESP 18; TEMP 97.3; O2SAT 96
--- NOTE | 2017-11-10 13:58 | HHI.IDPN ---
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 Denies dizziness. He has been on bystolic for a few years. Afebrile. No chills,QUIJANO,SOB. Blood culture ID - staph hemolyticus in both sets. Repeat blood culture negative x 2 days. 2D ECHO not yet done. Mom at bedside reports that patient was noted to have "hole in the heart" or some other heart abnormality as a child. In high school he had to have cardiac test for sports. 46-year-old white male who presented to the emergency department yesterday evening with flu-like illness. The patient describes chills, headaches, nausea and fever for approximately seven days prior. The patient states that he started feeling sick suddenly on , October 29. He started experiencing chills and aches in his knees and ankles, and nausea. He states that he would take Tylenol and Aleve and the fever went away but would come back so, therefore, he was constantly taking the anti-pyretic medications. PAST MEDICAL HISTORY Diabetes mellitus, hypertension. ALLERGIES NO KNOWN DRUG ALLERGIES. MEDICATIONS 1. Vancomycin. 2. Ceftriaxone. OBJECTIVE: Vital Signs Date Time Temp Pulse Resp B/P (MAP) Pulse Ox O2 Delivery O2 Flow Rate FiO2 11/10/17 12:00 97.3 61 18 187/96 (126) 96 11/10/17 08:00 96.4 65 17 174/94 (120) 95 11/10/17 04:00 96.6 57 18 170/85 (113) 97 11/10/17 00:00 97.2 52 18 151/79 (103) 97 11/09/17 20:00 96.2 59 16 138/66 (90) 98 11/09/17 16:00 97.4 56 19 164/94 (117) 98 Laboratory Tests Test 11/09/17 12:45 Blood Urea Nitrogen 18 MG/DL Creatinine 0.99 MG/DL Random Glucose 336 MG/DL Total Protein 7.0 GM/DL Albumin 2.2 GM/DL Calcium Level 8.4 MG/DL Alkaline Phosphatase 79 U/L Aspartate Amino Transf (AST/SGOT) 58 U/L Alanine Aminotransferase (ALT/SGPT) 55 U/L Total Bilirubin 0.3 MG/DL Sodium Level 136 MEQ/L Potassium Level 3.9 MEQ/L Chloride Level 105 MEQ/L Carbon Dioxide Level 21.2 MEQ/L Anion Gap 10 MEQ/L Estimat Glomerular Filtration Rate 81 ML/MIN Lipase 512 U/L Microbiology Date/Time Source Procedure Growth Status 11/09/17 06:31 Blood Peripheral Aerobic Blood Culture - Preliminary NO GROWTH IN 1 DAY Resulted 11/09/17 06:31 Blood Peripheral Anaerobic Blood Culture - Preliminary NO GROWTH IN 1 DAY Resulted 11/08/17 17:49 Blood Peripheral Aerobic Blood Culture - Preliminary NO GROWTH IN 2 DAYS Resulted 11/08/17 17:49 Blood Peripheral Anaerobic Blood Culture - Preliminary NO GROWTH IN 2 DAYS Resulted PHYSICAL EXAMINATION: GENERAL: No acute distress. HEENT: extraocular movements grossly intact, pupils reactive to light. No icterus. Oropharynx has moist mucosa. No visible lesions. Neck: Supple without adenopathy. Lungs: Clear breath sounds. Heart: Regular S1-S2. No audible murmurs, rubs or gallops. Abdomen: Bowel sounds present, obese, the bowel sounds are diminished, nontender. Few healed nodular skin lesion of the abdomen anteriorly below the umbilicus. Extremities: No clubbing, cyanosis or edema. Skin: No rash. Neuro: No gross focal findings. Psych: Patient calm and cooperative. IMPRESSION 1. Sepsis with staph hemolyticus. 2D ECHO pending. Abnormal heart rhythm noted. 2. Fever. Resolved. 3. Elevated lipase. 4. Acute kidney disease. improving. RECOMMENDATIONS 1. Stop vancomycin. 2. Continue ceftriaxone. 3. Agree with cardiology consult to evaluate arrhythmia 4. 2D ECHO to evaluate for endocarditis. If repeat blood culture is negative and cardiac w/u is unrevealing the IV Ceftriaxone can be continued until 11/18. Otherwise he may need longer course if there are findings of endocarditis on workup. Discharge decision pending work up. Rj Hendricks MD Nov 10, 2017 13:58
[2017-11-10] MEDS: amLODIPine BESYLATE 5 MG TAB PO SCH (14:01)
[2017-11-10 16:00] VITALS: BP 171/87; PULSE 61; RESP 18; TEMP 96.1; O2SAT 98
[2017-11-10 16:39] LABS: BASOPHIL % 0.4 % (0.0-2.0); EOSINOPHIL # 0.3 TH/MM3 (0-0.4); EOSINOPHIL % 3.3 % (0.0-4.0); HEMATOCRIT 39.3 % (39.0-51.0); HEMOGLOBIN 13.4 GM/DL (13.0-17.0); LYMPH % 24.7 % (9.0-44.0); MEAN CELL VOLUME 88.4 FL (80.0-100.0); MEAN CORPUSCULAR HEMOGLOBIN 30.2 PG (27.0-34.0); MEAN CORPUSCULAR HGB CONC 34.2 % (32.0-36.0); MEAN PLATELET VOLUME 8.7 FL (7.0-11.0); MONO % 10.2 % (0.0-8.0); MONOCYTE # 0.8 TH/MM3 (0-0.9); NEUT % 61.4 % (16.0-70.0); PLATELET COUNT 238 TH/MM3 (150-450); RED BLOOD COUNT 4.45 MIL/MM3 (4.50-5.90); RED CELL DISTRIBUTION WIDTH 14.8 % (11.6-17.2); WHITE BLOOD COUNT 8.1 TH/MM3 (4.0-11.0)
[2017-11-10 17:29] LABS: BANDS 1 % (0-6); BLASTS 1 % (0-0); CORRECTED NUCLEATED RBC 1 /100 WBC (0-0); LYMPHOCYTES 19 % (9-44); METAMYELOCYTES 2 % (0-1); MONOCYTES 6 % (0-8); NEUTROPHIL # MANUAL DIFF 5.8 TH/MM3 (1.8-7.7); NUCLEATED RED BLOOD CELL 1 (0-0); POLYS (SEG NEUTROPHILS) 65 % (16-70); PROMYELOCYTES 3 % (0-0)
--- NOTE | 2017-11-10 18:25 | ECHRPT ---
Indication: bacteremia CONCLUSIONS Normal left ventricular size. Estimated systolic function is 60-65% [id number] mitral valve regurgitation. No aortic valve regurgitation. No aortic valve stenosis. The tricuspid valve is not well visualized. There is trace tricuspid valve regurgitation. The pulmonary valve is not well visualized. BP: / HR: Rhythm: MEASUREMENTS (Male / Female) Normal Values Technical Quality:Technically difficult study 2D ECHO LV Diastolic Diameter PLAX 4.8 cm 4.2 - 5.9 / 3.9 - 5.3 cm LV Systolic Diameter PLAX 3.4 cm IVS Diastolic Thickness 1.5 cm 0.6 - 1.0 / 0.6 - 0.9 cm LVPW Diastolic Thickness 1.2 cm 0.6 - 1.0 / 0.6 - 0.9 cm LV Relative Wall Thickness 0.6 RV Internal Dim ED PLAX 4.0 cm M-MODE Aortic Root Diameter MM 3.4 cm LA Systolic Diameter MM 4.7 cm LA Ao Ratio MM 1.4 AV Cusp Separation MM 2.1 cm DOPPLER Mitral E Point Velocity 84.9 cm/s Mitral A Point Velocity 64.2 cm/s Mitral E to A Ratio 1.3 LV E' Lateral Velocity 10.7 cm/s Mitral E to LV E' Lateral Ratio 7.9 LV E' Septal Velocity 11.6 cm/s Mitral E to LV E' Septal Ratio 7.3 FINDINGS LEFT VENTRICLE Normal left ventricular size. The left ventricular systolic function is normal with an estimated ejection fraction in the range of 60-65%. RIGHT VENTRICLE Normal right ventricular size and systolic function. LEFT ATRIUM The left atrial size is normal. RIGHT ATRIUM The right atrial size is normal. ATRIAL SEPTUM Normal atrial septal thickness without atrial level shunting by limited color doppler interrogation. AORTA The aortic root and proximal ascending aorta are normal in size on limited imaging. MITRAL VALVE Structurally normal mitral valve. [id number] mitral valve regurgitation. AORTIC VALVE Trileaflet aortic valve. No aortic valve regurgitation. No aortic valve stenosis. TRICUSPID VALVE The tricuspid valve is not well visualized. There is trace tricuspid valve regurgitation. PULMONARY VALVE The pulmonary valve is not well visualized. VESSELS The inferior vena cava is normal in size. PERICARDIUM No pericardial effusion. Jose Montes De Oca MD, FACC, [facility] [place] (Electronically Signed) Final Date:10 November 2017 18:24
[2017-11-10 20:00] VITALS: BP 160/86; PULSE 61; RESP 22; TEMP 97.1; O2SAT 97
[2017-11-10] MEDS: ATORVASTATIN 20 MG TAB PO SCH (21:03)
[2017-11-10] MEDS: ACETAMINOPHEN 325 MG TAB PO PRN (21:03)
[2017-11-10] MEDS: ENALAPRILAT 1.25 MG/ML VIAL IV PUSH PRN (21:07)
--- NOTE | 2017-11-10 21:22 | HHI.PR ---
Subjective Remarks Patient resting in bed doing well no complaint except some headache The nurse reported episode of AV block seems to be second-degree Mobitz 1, I reviewed the strips of the telemetry Objective Vitals Vital Signs Date Time Temp Pulse Resp B/P (MAP) Pulse Ox O2 Delivery O2 Flow Rate FiO2 11/10/17 20:00 97.1 61 22 160/86 (110) 97 11/10/17 16:00 96.1 61 18 171/87 (115) 98 11/10/17 12:00 97.3 61 18 187/96 (126) 96 11/10/17 08:00 96.4 65 17 174/94 (120) 95 11/10/17 04:00 96.6 57 18 170/85 (113) 97 11/10/17 00:00 97.2 52 18 151/79 (103) 97 I/O 11/09/17 11/09/17 11/09/17 11/10/17 11/10/17 11/10/17 06:59 14:59 22:59 06:59 14:59 22:59 Intake Total 1100 ml 2020 ml 1840 ml 820 ml Output Total 1000 ml 1200 ml 3900 ml Balance 100 ml 820 ml 1840 ml -3080 ml Intake Oral 1400 ml 240 ml 720 ml IV Total 1100 ml 620 ml 1600 ml 100 ml Output Urine Total 1000 ml 1200 ml 3900 ml # Voids 1 1 # Bowel Movements 2 1 2 Result Diagram: 11/10/17 1520 11/09/17 1245 Objective Remarks GENERAL: This is a well-nourished, well-developed patient, in no apparent distress. SKIN: No rashes, warm and dry HEAD: Atraumatic. Normocephalic. EYES: Pupils equal round and reactive. Extraocular motions intact. No scleral icterus. ENT: Nose without bleeding, or drainage, Airway patent. NECK: Trachea midline. Supple CARDIOVASCULAR: Regular rate and rhythm without murmurs, gallops, or rubs. RESPIRATORY: Fair air entry bilaterally. No wheezes, rales, or rhonchi. GASTROINTESTINAL: Abdomen soft, non-tender, nondistended. Positive bowel sounds MUSCULOSKELETAL: Extremities without clubbing, cyanosis, or edema. Pedal pulses appreciated NEUROLOGICAL: Awake and alert. Moves all extremity. Normal speech.no focal neurological deficit A/P Assessment and Plan 11/10/17: Episode of AV blocks second-degree Mobitz 1, I reviewed the telemetry strips, which may be concerning considering his history of fever and bacteremia , discussed with ID in length, will consult cardiology for CARMENZA, DC vancomycin continue cefepime A/P: 1. Acute kidney injury- improving. Suspect secondary to dehydration with elevated BUN and decreased by mouth intake continue IV fluid hydration Monitor renal function 2. sepsis/ Concern for meningitis given [employer] symptoms and fever on admission Patient refuses LP in ED Blood cultures staph coag negative Continue antibiotic coverage for meningitis for now;Rocephin/vancomycin consult ID, discussed with Dr. Hendricks 3. Type 2 diabetes mellitus Holding home oral anti-hyperglycemics SSI Monitor blood glucose 4. Hypertension Continue home medications 5. Hyperlipidemia Continue home statin 6. elevated lipase-without abdominal pain- continue trending lipase level, continue iv fluid Eran Plasencia MD Nov 10, 2017 21:22
[2017-11-11] VITALS (11 sets, daily range): BP systolic 146–182; BP diastolic 82–100; PULSE 50–68; RESP 17–22; TEMP 96.7–97.8; O2SAT 95–99
[2017-11-11] MEDS: ACETAMINOPHEN 325 MG TAB PO PRN (03:10)
[2017-11-11] MEDS: ENALAPRILAT 1.25 MG/ML VIAL IV PUSH PRN (03:13)
[2017-11-11] MEDS ORDERED: PHARMACY ORDERED LAB ONE ×2 (03:45→05:45)
[2017-11-11] MEDS: SODIUM CHLOR 0.9% 1000 ML INJ 1,000 ML IV SCH ×2 (05:32→17:37)
[2017-11-11] MEDS: cefTRIAXone INJ 2,000 MG in SODIUM CHLORIDE 0.9% INJ 100 ML IV SCH ×2 (05:33→17:36)
[2017-11-11] MEDS ORDERED: ENALAPRILAT 1.25 MG/ML VIAL IV PUSH ONE (06:15)
[2017-11-11 07:21] LABS: AUTOMATED NEUTROPHIL # 3.7 TH/MM3 (1.8-7.7); BASOPHIL % 0.5 % (0.0-2.0); EOSINOPHIL # 0.2 TH/MM3 (0-0.4); EOSINOPHIL % 3.4 % (0.0-4.0); HEMATOCRIT 35.8 % (39.0-51.0); HEMOGLOBIN 12.6 GM/DL (13.0-17.0); LYMPH % 30.3 % (9.0-44.0); MEAN CELL VOLUME 87.1 FL (80.0-100.0); MEAN CORPUSCULAR HEMOGLOBIN 30.6 PG (27.0-34.0); MEAN CORPUSCULAR HGB CONC 35.2 % (32.0-36.0); MEAN PLATELET VOLUME 8.2 FL (7.0-11.0); MONO % 9.5 % (0.0-8.0); MONOCYTE # 0.6 TH/MM3 (0-0.9); NEUT % 56.3 % (16.0-70.0); PLATELET COUNT 219 TH/MM3 (150-450); RED BLOOD COUNT 4.12 MIL/MM3 (4.50-5.90); RED CELL DISTRIBUTION WIDTH 14.2 % (11.6-17.2); WHITE BLOOD COUNT 6.7 TH/MM3 (4.0-11.0)
[2017-11-11 08:26] LABS: BANDS 9 % (0-6); LYMPHOCYTES 24 % (9-44); METAMYELOCYTES 1 % (0-1); MONOCYTES 9 % (0-8); MYELOCYTES 2 % (0-0); NEUTROPHIL # MANUAL DIFF 4.4 TH/MM3 (1.8-7.7); POLYS (SEG NEUTROPHILS) 53 % (16-70)
[2017-11-11 08:27] LABS: TOXIC GRANULATION 1+ (NORMAL)
[2017-11-11] MEDS: INSULIN ASPART SUPPLEMENTAL SCALE SQ SCH ×4 (08:30→20:44)
[2017-11-11] MEDS: NEBIVOLOL 10 MG TAB PO SCH (08:31)
[2017-11-11] MEDS: SODIUM CHLORIDE 0.9% FLUSH 10 ML FLUSH IV FLUSH SCH ×2 (08:31→20:44)
[2017-11-11] MEDS: HYDROCHLOROTHIAZIDE 12.5 MG CAP PO SCH (08:31)
[2017-11-11] MEDS: PANTOPRAZOLE SOD 40 MG DELAYED RELEASE TAB PO SCH (08:31)
[2017-11-11] MEDS: LISINOPRIL 10 MG TAB PO SCH ×2 (08:33→20:43)
[2017-11-11] MEDS: amLODIPine BESYLATE 5 MG TAB PO SCH (08:34)
[2017-11-11] MEDS: DOCUSATE SODIUM 50 MG/SENNA 8.6 MG TAB PO SCH ×2 (08:35→20:44)
[2017-11-11] MEDS ORDERED: RAMIPRIL 5 MG CAP PO ONE (09:30)
--- NOTE | 2017-11-11 12:26 | PD.CARD.PN ---
Subjective Subjective Remarks alert in nad Objective Medications Current Medications Medications (Trade) Dose Ordered Sig/Timothy Route Start Time Stop Time Status Last Admin Ceftriaxone Sodium 2000 mg/ Sodium Chloride 100 ml @ 200 mls/hr Q12H IV 11/07/17 06:00 11/11/17 05:33 Sodium Chloride 1,000 ml @ 75 mls/hr [id number] IV 11/06/17 20:00 11/11/17 05:32 (NS Flush) 2 ml UNSCH PRN IV FLUSH 11/06/17 19:45 11/09/17 06:02 (NS Flush) 2 ml BID IV FLUSH 11/06/17 21:00 11/09/17 23:09 (Tylenol) 650 mg Q4H PRN PO 11/06/17 19:45 11/11/17 03:10 (Zofran Inj) 4 mg Q6H PRN IVP 11/06/17 19:45 (Narcan Inj) 0.4 mg UNSCH PRN IV PUSH 11/06/17 19:45 (Bernarda-Colace) 1 tab BID PO 11/06/17 21:00 11/09/17 23:09 (Milk Of Magnesia Liq) 30 ml Q12H PRN PO 11/06/17 19:45 (Senokot) 17.2 mg Q12H PRN PO 11/06/17 19:45 (Dulcolax Supp) 10 mg DAILY PRN RECTAL 11/06/17 19:45 (Lactulose Liq) 30 ml DAILY PRN PO 11/06/17 19:45 (Lipitor) 20 mg HS PO 11/07/17 21:00 11/10/17 21:03 (Prinivil) 10 mg DAILY PO 11/07/17 09:00 11/11/17 08:33 (Bystolic) 20 mg DAILY PO 11/07/17 09:00 11/09/17 10:11 (D50w (Vial) Inj) 50 ml UNSCH PRN IV PUSH 11/06/17 21:45 (Glucagon Inj) 1 mg UNSCH PRN OTHER 11/06/17 21:45 (NovoLOG SUPPLEMENTAL SCALE) 1 ACHS SLIDING SCALE SQ 11/07/17 08:00 11/11/17 11:41 (Microzide) 12.5 mg DAILY PO 11/07/17 09:00 11/11/17 08:31 (Ambien) 10 mg HS PRN PO 11/06/17 23:15 11/06/17 23:27 (Benadryl) 25 mg Q6H PRN PO 11/07/17 10:45 11/07/17 10:51 (Protonix) 40 mg DAILY PO 11/08/17 09:00 11/11/17 08:31 (Norvasc) 5 mg DAILY PO 11/10/17 13:30 11/11/17 08:34 (Vasotec Inj) 1.25 mg Q6H PRN IV PUSH 11/10/17 15:45 11/11/17 03:13 (Altace) 5 mg DAILY PO 11/12/17 09:00 Vital Signs / I&O Vital Signs Date Time Temp Pulse Resp B/P (MAP) Pulse Ox O2 Delivery O2 Flow Rate FiO2 11/11/17 12:00 97.8 58 18 182/82 (115) 99 11/11/17 10:01 164/100 (121) 11/11/17 08:00 96.9 50 17 182/99 (126) 97 11/11/17 07:00 182/99 (126) 11/11/17 05:41 180/88 (118) 11/11/17 04:00 97.0 51 22 181/98 (125) 98 11/11/17 01:49 58 11/11/17 00:00 96.7 68 20 146/87 (106) 95 11/10/17 22:12 20 11/10/17 20:00 97.1 61 22 160/86 (110) 97 11/10/17 16:00 96.1 61 18 171/87 (115) 98 I/O 11/10/17 11/10/17 11/10/17 11/11/17 11/11/17 11/11/17 07:00 15:00 23:00 07:00 15:00 23:00 Intake Total 1840 ml 820 ml 480 ml Output Total 3900 ml 3250 ml Balance 1840 ml -3080 ml -2770 ml Intake Oral 240 ml 720 ml 480 ml IV Total 1600 ml 100 ml Output Urine Total 3900 ml 3250 ml # Voids 1 # Bowel Movements 1 2 0 Physical Exam GENERAL: SKIN: Warm and dry. HEAD: Normocephalic. EYES: No scleral icterus. No injection or drainage. NECK: Supple, trachea midline. No JVD or lymphadenopathy. CARDIOVASCULAR: Regular rate and rhythm without murmurs, gallops, or rubs. RESPIRATORY: Breath sounds equal bilaterally. No accessory muscle use. GASTROINTESTINAL: Abdomen soft, non-tender, nondistended. MUSCULOSKELETAL: No cyanosis, or edema. BACK: Nontender without obvious deformity. No CVA tenderness. Laboratory Laboratory Tests Test 11/10/17 15:20 11/11/17 06:54 White Blood Count 8.1 TH/MM3 6.7 TH/MM3 Red Blood Count 4.45 MIL/MM3 4.12 MIL/MM3 Hemoglobin 13.4 GM/DL 12.6 GM/DL Hematocrit 39.3 % 35.8 % Mean Corpuscular Volume 88.4 FL 87.1 FL Mean Corpuscular Hemoglobin 30.2 PG 30.6 PG Mean Corpuscular Hemoglobin Concent 34.2 % 35.2 % Red Cell Distribution Width 14.8 % 14.2 % Platelet Count 238 TH/MM3 219 TH/MM3 Mean Platelet Volume 8.7 FL 8.2 FL Neutrophils (%) (Auto) 61.4 % 56.3 % Lymphocytes (%) (Auto) 24.7 % 30.3 % Monocytes (%) (Auto) 10.2 % 9.5 % Eosinophils (%) (Auto) 3.3 % 3.4 % Basophils (%) (Auto) 0.4 % 0.5 % Neutrophils # (Auto) 5.0 TH/MM3 3.7 TH/MM3 Lymphocytes # (Auto) 2.0 TH/MM3 2.0 TH/MM3 Monocytes # (Auto) 0.8 TH/MM3 0.6 TH/MM3 Eosinophils # (Auto) 0.3 TH/MM3 0.2 TH/MM3 Basophils # (Auto) 0.0 TH/MM3 0.0 TH/MM3 CBC Comment AUTO DIFF AUTO DIFF Differential Total Cells Counted 100 100 Neutrophils % (Manual) 65 % 53 % Band Neutrophils % 1 % 9 % Lymphocytes % 19 % 24 % Monocytes % 6 % 9 % Eosinophils % 3 % 2 % Neutrophils # (Manual) 5.8 TH/MM3 4.4 TH/MM3 Metamyelocytes 2 % 1 % Promyelocytes 3 % Nucleated Red Blood Cells 1 /100 WBC Differential Comment FINAL DIFF MANUAL FINAL DIFF MANUAL Blastocytes 1 % Myelocytes 2 % Atypical Lymphocytes % Toxic Granulation 1+ Platelet Estimate NORMAL Platelet Morphology Comment NORMAL Assessment and Plan Problem List: (1) Hypertension ICD Codes: I10 - Essential (primary) hypertension (2) Dysrhythmia ICD Codes: I49.9 - Cardiac arrhythmia, unspecified Assessment and Plan 1.) HTN - add altace 5 mg qd 2.) Dysrhythmia - ekg c/w blocked pac 3.) Bacteremia - per ID recommendations, d/w Jose Martinez MD Nov 11, 2017 12:26
--- NOTE | 2017-11-11 14:10 | EKG ---
Date Performed: 11/10/2017 Time Performed: 10:37:53 PTAGE: 46 years EKG: Sinus rhythm with marked first degree AV block with TX interval of 0.42 Otherwise within normal limits Clinical c orrelation is recommended NO PREVIOUS TRACING DOCTOR: Chang Roberts Interpretating Date/Time 11/11/2017 14:08:44
--- NOTE | 2017-11-11 15:51 | HHI.PR ---
Subjective Remarks Patient complaint of abdominal at 3 AM His family at bedside showed me recent blood work from August 2017 showing A1c of 8.6 Other than that no fever or other symptoms, cardiology came to bedside and discussed with Dr. Montes De Oca Objective Vitals Vital Signs Date Time Temp Pulse Resp B/P (MAP) Pulse Ox O2 Delivery O2 Flow Rate FiO2 11/11/17 14:09 164/90 (114) 11/11/17 12:00 97.8 58 18 182/82 (115) 99 11/11/17 10:01 164/100 (121) 11/11/17 08:00 96.9 50 17 182/99 (126) 97 11/11/17 07:00 182/99 (126) 11/11/17 05:41 180/88 (118) 11/11/17 04:00 97.0 51 22 181/98 (125) 98 11/11/17 01:49 58 11/11/17 00:00 96.7 68 20 146/87 (106) 95 11/10/17 22:12 20 11/10/17 20:00 97.1 61 22 160/86 (110) 97 11/10/17 16:00 96.1 61 18 171/87 (115) 98 I/O 11/10/17 11/10/17 11/10/17 11/11/17 11/11/17 11/11/17 07:00 15:00 23:00 07:00 15:00 23:00 Intake Total 1840 ml 820 ml 480 ml Output Total 3900 ml 3250 ml Balance 1840 ml -3080 ml -2770 ml Intake Oral 240 ml 720 ml 480 ml IV Total 1600 ml 100 ml Output Urine Total 3900 ml 3250 ml # Voids 1 # Bowel Movements 1 2 0 Result Diagram: 11/11/17 0654 11/09/17 1245 Objective Remarks GENERAL: This is a well-nourished, well-developed patient, in no apparent distress. SKIN: No rashes, warm and dry HEAD: Atraumatic. Normocephalic. EYES: Pupils equal round and reactive. Extraocular motions intact. No scleral icterus. ENT: Nose without bleeding, or drainage, Airway patent. NECK: Trachea midline. Supple CARDIOVASCULAR: Regular rate and rhythm without murmurs, gallops, or rubs. RESPIRATORY: Fair air entry bilaterally. No wheezes, rales, or rhonchi. GASTROINTESTINAL: Abdomen soft, non-tender, nondistended. Positive bowel sounds MUSCULOSKELETAL: Extremities without clubbing, cyanosis, or edema. Pedal pulses appreciated NEUROLOGICAL: Awake and alert. Moves all extremity. Normal speech.no focal neurological deficit A/P Assessment and Plan 11/10/17: Continue following blood culture, discussed with ID, will do CT scan of the abdomen and pelvic and chest x-ray as well as 2-D echo 11/11/17: Patient complained of fiscal agent headache, I will check his A1c, will check blood sugar at 3 AM rule out fiscal agent hypoglycemia, will add Levemir twice a day for better blood glucose control culture shows staph hemolyticus, I discussed in length with Dr. Montes De Oca the cardiology explained our concern regarding the new AV block considering his history of fever and bacteremia, he will follow up with us and with ID, if repeat blood culture comes back again positive or repeat AV block will need to proceed with CARMENZA, I discussed with her telemetric room patient didn't have AV block today it was only yesterday A/P: 1. Acute kidney injury- improving. Suspect secondary to dehydration with elevated BUN and decreased by mouth intake continue IV fluid hydration Monitor renal function 2. sepsis/ Concern for meningitis given [employer] symptoms and fever on admission Patient refuses LP in ED Blood cultures staph coag negative Continue antibiotic coverage for meningitis for now;Rocephin/vancomycin consult ID, discussed with Dr. Hendricks 3. Type 2 diabetes mellitus uncontrolled Holding home oral anti-hyperglycemics SSI with Accu-Chek Monitor blood glucose Add Levemir twice a day 4. Hypertension, uncontrolled Patient started on Altace by cardiology he is also on lisinopril 10 mg daily, I will change that to lisinopril 10 twice a day, vision also on hydrochlorothiazide 12 .5 [place] daily will add Vasotec and clonidine as needed for optimization 5. Hyperlipidemia Continue home statin 6. elevated lipase-without abdominal pain- continue trending lipase level, continue iv fluid Eran Plasencia MD Nov 11, 2017 15:51
[2017-11-11] MEDS ORDERED: ENALAPRILAT 1.25 MG/ML VIAL IV PUSH PRN (16:15)
[2017-11-11] MEDS ORDERED: cloNIDine HCL 0.1 MG TAB PO PRN (17:00)
[2017-11-11] MEDS: ATORVASTATIN 20 MG TAB PO SCH (20:43)
[2017-11-11] MEDS: INSULIN DETEMIR 100 UNITS/ML VIAL SQ SCH (20:44)
[2017-11-12] VITALS (8 sets, daily range): BP systolic 137–180; BP diastolic 83–94; PULSE 55–76; RESP 17–18; TEMP 95.8–98.1; O2SAT 96–98
[2017-11-12] MEDS: cefTRIAXone INJ 2,000 MG in SODIUM CHLORIDE 0.9% INJ 100 ML IV SCH ×2 (04:29→18:26)
[2017-11-12] MEDS: ACETAMINOPHEN 325 MG TAB PO PRN (04:29)
[2017-11-12 07:47] LABS: ALBUMIN 2.6 GM/DL (3.4-5.0); AST (GOT) 30 U/L (15-37); BLOOD UREA NITROGEN 16 MG/DL (7-18); CALCIUM 8.5 MG/DL (8.5-10.1); CHLORIDE 102 MEQ/L (98-107); CREATININE 1.02 MG/DL (0.60-1.30); GLOMERULAR FILTRATION RATE 79 ML/MIN (>89); GLUCOSE,RANDOM 269 MG/DL (74-106); LIPASE 432 U/L (73-393); SODIUM (NA) 133 MEQ/L (136-145)
[2017-11-12 07:48] LABS: ALT (GPT) 58 U/L (12-78)
[2017-11-12 07:50] LABS: ALKALINE PHOSPHATASE 95 U/L (45-117); TOTAL BILIRUBIN ADULT 0.4 MG/DL (0.2-1.0); TOTAL PROTEIN 7.6 GM/DL (6.4-8.2)
[2017-11-12] MEDS ORDERED: RAMIPRIL 5 MG CAP PO SCH (09:00)
[2017-11-12] MEDS: DOCUSATE SODIUM 50 MG/SENNA 8.6 MG TAB PO SCH ×2 (09:00→21:00)
[2017-11-12] MEDS: SODIUM CHLORIDE 0.9% FLUSH 10 ML FLUSH IV FLUSH SCH ×2 (09:00→21:00)
[2017-11-12] MEDS: SODIUM CHLOR 0.9% 1000 ML INJ 1,000 ML IV SCH ×2 (09:51→18:27)
[2017-11-12] MEDS: INSULIN ASPART SUPPLEMENTAL SCALE SQ SCH ×4 (09:53→21:30)
[2017-11-12] MEDS: NEBIVOLOL 5 MG TAB PO SCH (09:58)
--- NOTE | 2017-11-12 10:28 | MB ---
cc: CHARLY FARRELL M.D. DATE OF CONSULTATION: 11/10/2017. HISTORY OF PRESENT ILLNESS: Bautista is a pleasant 46-year-old gentleman I am consulted for evaluation of secondary AV block. The patient has Staph epidermidis bacteremia. He is currently resting comfortably in bed in no acute distress. He denies any fatigue, syncope, near syncope, chest pain or shortness of breath, GI or bleeding, paroxysmal nocturnal dyspnea, orthopnea. PAST MEDICAL HISTORY: His past medical history is per the history of present illness. He has a history of hypertension, diabetes. SOCIAL HISTORY: He denies tobacco use. ALLERGIES: NONE. MEDICATIONS IN THE HOSPITAL: 1. Amlodipine 5 milligrams daily. 2. Vancomycin. 3. Pantoprazole 40 daily. 4. Atorvastatin 20 at bedtime. 5. Lisinopril 10 daily. 6. Bystolic 20 daily. 7. Hydrochlorothiazide 12.5 daily. 8. Sliding scale insulin. 9. Ceftriaxone. 10. Zolpidem PRN. PHYSICAL EXAMINATION: VITAL SIGNS: Temperature 97.3, pulse 61, blood pressure 186/96, respiratory rate 18. Yesterday blood pressure was 138/66. His heart rate on the chart is ranging between 52 and 65. On telemetry currently he is in normal sinus rhythm at 62 beats per minute. GENERAL: He alert and oriented times three and in no acute distress. NECK: The neck is supple. No jugular venous distention. No bruits. CARDIOVASCULAR: S1 and S2. No murmurs, rubs or gallops. LUNGS: Clear to auscultation bilaterally. ABDOMEN: The abdomen is soft, nontender and nondistended with positive bowel sounds. EXTREMITIES: No lower extremity edema. LABS: White count 8.1, hemoglobin 13.4, hematocrit 39.3, platelet count 238,000. He did have a low platelet count of 135,000 on the 07 of November and was anemic on the and 07 of November with a hemoglobin of 12.3. INR is 1.0. Sodium 136, potassium 3.9, chloride 105, bicarbonate 21.2, creatinine 0.99, glucose 336, AST 58, ALT 55, lipase is 512, albumin 2.2. Microbiology: The patient is growing out Staph hemolyticus x2 on November 06, 2017. EKGS: EKG done today is the only EKG he has as ordered by myself. The EKG shows normal sinus rhythm at 55 beats per minute with first-degree AV block. There appears to be a blocked PAC. I do not think this is secondary to AV block. There is one that has a Q wave inversion in V1 and V2. intervals 457 milliseconds. IMAGING STUDIES: Chest x-ray: No acute disease. Abdomen and pelvis CT: Cannot obtain this. DIAGNOSES: 1. First-degree AV block. 2. Blocked PAC. 3. Bacteremia. 4. Hypertension. 5. Diabetes mellitus. DISCUSSION: At this point in time, I do not see any definite evidence of second-degree AV block. Recommend continued telemetry monitoring and will review the patient's 2-D echocardiogram as well. MD PARUL Castellano/MILLIE /5:00 PM /10:07 AM
--- NOTE | 2017-11-12 11:26 | HHI.IDPN ---
Note Infectious Disease Note Patient says he feels okay Denies dizziness. Afebrile. No chills. Blood culture ID - staph hemolyticus in both sets. Repeat blood culture negative. Mom reported that patient was noted to have "hole in the heart" or some other heart abnormality as a child. In high school he had to have cardiac test for sports. 46-year-old white male who presented to the emergency department yesterday evening with flu-like illness. The patient describes chills, headaches, nausea and fever for approximately seven days prior. The patient states that he started feeling sick suddenly on October 29. He started experiencing chills and aches in his knees and ankles, and nausea. He states that he would take Tylenol and Aleve and the fever went away but would come back so, therefore, he was constantly taking the anti-pyretic medications. PAST MEDICAL HISTORY Diabetes mellitus, hypertension. ALLERGIES NO KNOWN DRUG ALLERGIES. MEDICATIONS Ceftriaxone. OBJECTIVE: Vital Signs Date Time Temp Pulse Resp B/P (MAP) Pulse Ox O2 Delivery O2 Flow Rate FiO2 11/12/17 08:00 95.8 60 18 171/92 (118) 98 11/12/17 04:00 97.4 57 18 152/94 (113) 98 11/12/17 01:15 137/91 (106) 11/12/17 00:00 96.1 58 17 180/91 (120) 96 11/11/17 20:00 62 11/11/17 20:00 97.1 60 18 176/95 (122) 97 176/95 (122) 11/11/17 16:00 96.8 56 17 163/83 (109) 98 11/11/17 14:09 164/90 (114) 11/11/17 12:00 97.8 58 18 182/82 (115) 99 Laboratory Tests Test 11/10/17 15:20 11/11/17 06:54 White Blood Count 8.1 TH/MM3 6.7 TH/MM3 Red Blood Count 4.45 MIL/MM3 4.12 MIL/MM3 Hemoglobin 13.4 GM/DL 12.6 GM/DL Hematocrit 39.3 % 35.8 % Mean Corpuscular Volume 88.4 FL 87.1 FL Mean Corpuscular Hemoglobin 30.2 PG 30.6 PG Mean Corpuscular Hemoglobin Concent 34.2 % 35.2 % Red Cell Distribution Width 14.8 % 14.2 % Platelet Count 238 TH/MM3 219 TH/MM3 Mean Platelet Volume 8.7 FL 8.2 FL Neutrophils (%) (Auto) 61.4 % 56.3 % Lymphocytes (%) (Auto) 24.7 % 30.3 % Monocytes (%) (Auto) 10.2 % 9.5 % Eosinophils (%) (Auto) 3.3 % 3.4 % Basophils (%) (Auto) 0.4 % 0.5 % Neutrophils # (Auto) 5.0 TH/MM3 3.7 TH/MM3 Lymphocytes # (Auto) 2.0 TH/MM3 2.0 TH/MM3 Monocytes # (Auto) 0.8 TH/MM3 0.6 TH/MM3 Eosinophils # (Auto) 0.3 TH/MM3 0.2 TH/MM3 Basophils # (Auto) 0.0 TH/MM3 0.0 TH/MM3 CBC Comment AUTO DIFF AUTO DIFF Differential Total Cells Counted 100 100 Neutrophils % (Manual) 65 % 53 % Band Neutrophils % 1 % 9 % Lymphocytes % 19 % 24 % Monocytes % 6 % 9 % Eosinophils % 3 % 2 % Neutrophils # (Manual) 5.8 TH/MM3 4.4 TH/MM3 Metamyelocytes 2 % 1 % Promyelocytes 3 % Nucleated Red Blood Cells 1 /100 WBC Differential Comment FINAL DIFF MANUAL FINAL DIFF MANUAL Blastocytes 1 % Myelocytes 2 % Atypical Lymphocytes % Toxic Granulation 1+ Platelet Estimate NORMAL Platelet Morphology Comment NORMAL Laboratory Tests Test 11/12/17 06:30 Blood Urea Nitrogen 16 MG/DL Creatinine 1.02 MG/DL Random Glucose 269 MG/DL Total Protein 7.6 GM/DL Albumin 2.6 GM/DL Calcium Level 8.5 MG/DL Alkaline Phosphatase 95 U/L Aspartate Amino Transf (AST/SGOT) 30 U/L Alanine Aminotransferase (ALT/SGPT) 58 U/L Total Bilirubin 0.4 MG/DL Sodium Level 133 MEQ/L Potassium Level 4.0 MEQ/L Chloride Level 102 MEQ/L Carbon Dioxide Level 22.0 MEQ/L Anion Gap 9 MEQ/L Estimat Glomerular Filtration Rate 79 ML/MIN Lipase 432 U/L Microbiology Date/Time Source Procedure Growth Status 11/09/17 06:31 Blood Peripheral Aerobic Blood Culture - Preliminary NO GROWTH IN 1 DAY Resulted 11/09/17 06:31 Blood Peripheral Anaerobic Blood Culture - Preliminary NO GROWTH IN 1 DAY Resulted 1/4/18 17:49 Blood Peripheral Aerobic Blood Culture - Preliminary NO GROWTH IN 2 DAYS Resulted 11/08/17 17:49 Blood Peripheral Anaerobic Blood Culture - Preliminary NO GROWTH IN 2 DAYS Resulted PHYSICAL EXAMINATION: GENERAL: No acute distress. HEENT: Extraocular movements grossly intact, pupils reactive to light. No icterus. Oropharynx has moist mucosa. Neck: Supple without adenopathy. Lungs: Clear breath sounds. Heart: Regular S1-S2. Heart sounds distant. No audible murmurs, rubs or gallops. Abdomen: Bowel sounds present, obese, the bowel sounds are diminished, nontender. Extremities: No clubbing, cyanosis or edema. Skin: No rash. Neuro: No gross focal findings. Psych: Calm and cooperative. IMPRESSION 1. Sepsis with staph hemolyticus. No definite source. 2. Fever. Resolved. 3. Elevated lipase. 4. Acute kidney disease. improved. RECOMMENDATIONS 1. Continue ceftriaxone. 2. CARMENZA to evaluate for endocarditis. Discussed with Dr Jose Montes De Oca. To be scheduled for Sunday. If the CARMENZA is negative will give treatment with IV Ceftriaxone until 11/18. Otherwise he may need longer course if valvular lesion is present. Discharge decision pending work up. Rj Hendricks MD Nov 12, 2017 11:26
[2017-11-12] MEDS: HYDROCHLOROTHIAZIDE 12.5 MG CAP PO SCH (12:16)
[2017-11-12] MEDS: amLODIPine BESYLATE 5 MG TAB PO SCH (12:17)
[2017-11-12] MEDS: INSULIN DETEMIR 100 UNITS/ML VIAL SQ SCH ×2 (12:18→21:29)
[2017-11-12] MEDS: PANTOPRAZOLE SOD 40 MG DELAYED RELEASE TAB PO SCH (12:18)
[2017-11-12] MEDS: LISINOPRIL 10 MG TAB PO SCH ×2 (12:18→21:28)
--- NOTE | 2017-11-12 12:34 | HHI.PR ---
Subjective Remarks no complains of fever or chills no joint pains, no urinary symptoms, no diarrhea, no abdominal pain no headaches, no neck pain Objective Vitals Vital Signs Date Time Temp Pulse Resp B/P (MAP) Pulse Ox O2 Delivery O2 Flow Rate FiO2 11/12/17 12:00 96.6 62 18 143/91 (108) 98 11/12/17 08:00 95.8 60 18 171/92 (118) 98 11/12/17 04:00 97.4 57 18 152/94 (113) 98 11/12/17 01:15 137/91 (106) 11/12/17 00:00 96.1 58 17 180/91 (120) 96 11/11/17 20:00 62 11/11/17 20:00 97.1 60 18 176/95 (122) 97 176/95 (122) 11/11/17 16:00 96.8 56 17 163/83 (109) 98 11/11/17 14:09 164/90 (114) I/O 11/11/17 11/11/17 11/11/17 11/12/17 11/12/17 11/12/17 07:00 15:00 23:00 07:00 15:00 23:00 Intake Total 480 ml 1540 ml 240 ml Output Total 3250 ml 2450 ml Balance -2770 ml -910 ml 240 ml Intake Oral 480 ml 1440 ml 240 ml IV Total 100 ml Output Urine Total 3250 ml 2450 ml # Voids 2 # Bowel Movements 0 2 0 Result Diagram: 11/11/17 0654 11/12/17 0630 Imaging Last Impressions Chest X-Ray 11/09/17 0000 Signed Impressions: Service Date/Time: Thursday, November 09, 2017 12:51 - CONCLUSION: No acute disease. Juan C Denise MD FACR Abdomen/Pelvis CT 11/09/17 0000 Signed Impressions: Service Date/Time: Thursday, November 09, 2017 18:38 - CONCLUSION: 1. Small bilateral pleural effusions with mild edema pattern and subsegmental consolidation in the right lower lobe. 2. No acute findings within the abdomen and pelvis. Small nonobstructing right renal calculi. Small cyst central liver. No bowel obstruction, free fluid or free air. 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 Hendricks ff plan for CARMENZA- Dr. Moisés terry Type 2 diabetes mellitus uncontrolled Holding home oral anti-hyperglycemics SSI with Accu-Chek. chekc hemoglobin A1C Monitor blood glucose Levemir twice a day Hypertension, uncontrolled Patient started on lisinopril 10 mg daily bid , hydrochlorothiazide 12 .5 daily amlodipine 10 mg daily prn Vasotec and clonidine as needed for optimization Hyperlipidemia Continue home statin elevated lipase-without abdominal pain- continue trending lipase level, continue iv fluid Mirta Tolbert MD Nov 12, 2017 12:34
--- NOTE | 2017-11-12 15:14 | PD.CARD.PN ---
Subjective Subjective Remarks alert in nad Objective Medications Current Medications Medications (Trade) Dose Ordered Sig/Timothy Route Start Time Stop Time Status Last Admin Ceftriaxone Sodium 2000 mg/ Sodium Chloride 100 ml @ 200 mls/hr Q12H IV 11/07/17 06:00 11/12/17 04:29 Sodium Chloride 1,000 ml @ 75 mls/hr [id number] IV 11/06/17 20:00 11/12/17 09:51 (NS Flush) 2 ml UNSCH PRN IV FLUSH 11/06/17 19:45 11/09/17 06:02 (NS Flush) 2 ml BID IV FLUSH 11/06/17 21:00 11/09/17 23:09 (Tylenol) 650 mg Q4H PRN PO 11/06/17 19:45 11/12/17 04:29 (Zofran Inj) 4 mg Q6H PRN IVP 11/06/17 19:45 (Narcan Inj) 0.4 mg UNSCH PRN IV PUSH 11/06/17 19:45 (Bernarda-Colace) 1 tab BID PO 11/06/17 21:00 11/09/17 23:09 (Milk Of Magnesia Liq) 30 ml Q12H PRN PO 11/06/17 19:45 (Senokot) 17.2 mg Q12H PRN PO 11/06/17 19:45 (Dulcolax Supp) 10 mg DAILY PRN RECTAL 11/06/17 19:45 (Lactulose Liq) 30 ml DAILY PRN PO 11/06/17 19:45 (Lipitor) 20 mg HS PO 11/07/17 21:00 11/11/17 20:43 (D50w (Vial) Inj) 50 ml UNSCH PRN IV PUSH 11/06/17 21:45 (Glucagon Inj) 1 mg UNSCH PRN OTHER 11/06/17 21:45 (NovoLOG SUPPLEMENTAL SCALE) 1 ACHS SLIDING SCALE SQ 11/07/17 08:00 11/12/17 13:27 (Microzide) 12.5 mg DAILY PO 11/07/17 09:00 11/12/17 12:16 (Ambien) 10 mg HS PRN PO 11/06/17 23:15 11/06/17 23:27 (Benadryl) 25 mg Q6H PRN PO 11/07/17 10:45 11/07/17 10:51 (Protonix) 40 mg DAILY PO 11/08/17 09:00 11/12/17 12:18 (Vasotec Inj) 1.25 mg Q6H PRN IV PUSH 11/10/17 15:45 11/11/17 03:13 (Prinivil) 10 mg Q12HR PO 11/11/17 21:00 11/12/17 12:18 (Levemir Inj) 5 units Q12HR SQ 11/11/17 21:00 11/12/17 12:18 (Catapres) 0.1 mg Q6H PRN PO 11/11/17 17:00 11/12/17 00:03 (Bystolic) 20 mg DAILY PO 11/12/17 09:00 11/12/17 09:58 (Norvasc) 10 mg DAILY PO 11/13/17 09:00 Vital Signs / I&O Vital Signs Date Time Temp Pulse Resp B/P (MAP) Pulse Ox O2 Delivery O2 Flow Rate FiO2 11/12/17 12:00 96.6 62 18 143/91 (108) 98 11/12/17 08:00 95.8 60 18 171/92 (118) 98 11/12/17 04:00 97.4 57 18 152/94 (113) 98 11/12/17 01:15 137/91 (106) 11/12/17 00:00 96.1 58 17 180/91 (120) 96 11/11/17 20:00 62 11/11/17 20:00 97.1 60 18 176/95 (122) 97 176/95 (122) 11/11/17 16:00 96.8 56 17 163/83 (109) 98 I/O 11/11/17 11/11/17 11/11/17 11/12/17 11/12/17 11/12/17 07:00 15:00 23:00 07:00 15:00 23:00 Intake Total 480 ml 1540 ml 240 ml Output Total 3250 ml 2450 ml Balance -2770 ml -910 ml 240 ml Intake Oral 480 ml 1440 ml 240 ml IV Total 100 ml Output Urine Total 3250 ml 2450 ml # Voids 2 # Bowel Movements 0 2 0 Physical Exam GENERAL: SKIN: Warm and dry. HEAD: Normocephalic. EYES: No scleral icterus. No injection or drainage. NECK: Supple, trachea midline. No JVD or lymphadenopathy. CARDIOVASCULAR: Regular rate and rhythm without murmurs, gallops, or rubs. RESPIRATORY: Breath sounds equal bilaterally. No accessory muscle use. GASTROINTESTINAL: Abdomen soft, non-tender, nondistended. MUSCULOSKELETAL: No cyanosis, or edema. BACK: Nontender without obvious deformity. No CVA tenderness. Laboratory Laboratory Tests Test 11/12/17 06:30 Blood Urea Nitrogen 16 MG/DL Creatinine 1.02 MG/DL Random Glucose 269 MG/DL Total Protein 7.6 GM/DL Albumin 2.6 GM/DL Calcium Level 8.5 MG/DL Alkaline Phosphatase 95 U/L Aspartate Amino Transf (AST/SGOT) 30 U/L Alanine Aminotransferase (ALT/SGPT) 58 U/L Total Bilirubin 0.4 MG/DL Sodium Level 133 MEQ/L Potassium Level 4.0 MEQ/L Chloride Level 102 MEQ/L Carbon Dioxide Level 22.0 MEQ/L Anion Gap 9 MEQ/L Estimat Glomerular Filtration Rate 79 ML/MIN Lipase 432 U/L Assessment and Plan Problem List: (1) Hypertension ICD Codes: I10 - Essential (primary) hypertension (2) Dysrhythmia ICD Codes: I49.9 - Cardiac arrhythmia, unspecified Assessment and Plan 1.) HTN - add altace 5 mg qd, improved 2.) Dysrhythmia - ekg c/w blocked pac 3.) Bacteremia - per ID recommendations, d/w Dr Plasencia, d/w Dr Dyer, requests CARMENZA, will try to schedule tomorrow, patient assymptomatic, denies dysphagia Jose Montes De Oca MD Nov 12, 2017 15:14
[2017-11-12] MEDS: ATORVASTATIN 20 MG TAB PO SCH (21:28)
[2017-11-13] VITALS (9 sets, daily range): BP systolic 128–170; BP diastolic 84–97; PULSE 54–76; RESP 17–18; TEMP 96.6–97.2; O2SAT 97–98
[2017-11-13] MEDS ORDERED: POVIDONE IODINE 5% (ANTISEPSIS KIT) 4 APPLICATIONS EACH NARE PRN (01:45)
[2017-11-13] MEDS ORDERED: CHLORHEXIDINE GLUCONATE 2 % 1 PACK (2 CLOTHS) TOPICAL PRN (01:45)
[2017-11-13] MEDS ORDERED: LACTATED RINGER'S 1000 ML IV PRN (01:45)
[2017-11-13] MEDS: cefTRIAXone INJ 2,000 MG in SODIUM CHLORIDE 0.9% INJ 100 ML IV SCH ×2 (06:07→17:30)
[2017-11-13] MEDS: NEBIVOLOL 5 MG TAB PO SCH (08:14)
[2017-11-13] MEDS: SODIUM CHLORIDE 0.9% FLUSH 10 ML FLUSH IV FLUSH SCH ×2 (08:17→21:00)
[2017-11-13] MEDS: INSULIN ASPART SUPPLEMENTAL SCALE SQ SCH ×4 (08:17→21:14)
[2017-11-13] MEDS: LISINOPRIL 10 MG TAB PO SCH ×2 (08:18→21:15)
[2017-11-13] MEDS: DOCUSATE SODIUM 50 MG/SENNA 8.6 MG TAB PO SCH ×2 (08:18→21:00)
[2017-11-13] MEDS: PANTOPRAZOLE SOD 40 MG DELAYED RELEASE TAB PO SCH (08:18)
[2017-11-13] MEDS: HYDROCHLOROTHIAZIDE 12.5 MG CAP PO SCH (08:18)
[2017-11-13] MEDS: INSULIN DETEMIR 100 UNITS/ML VIAL SQ SCH (08:18)
[2017-11-13] MEDS ORDERED: HYDROCHLOROTHIAZIDE 25 MG TAB PO ONE (09:00)
--- NOTE | 2017-11-13 10:12 | HHI.PR ---
Subjective Remarks no fever or chills no pain Objective Vitals Vital Signs Date Time Temp Pulse Resp B/P (MAP) Pulse Ox O2 Delivery O2 Flow Rate FiO2 11/13/17 08:00 96.8 54 17 170/91 (117) 97 11/13/17 04:48 96.6 68 18 133/87 (102) 97 11/13/17 04:00 60 11/13/17 00:09 54 11/13/17 00:00 96.7 54 18 155/92 (113) 98 11/12/17 20:00 98.1 70 18 166/93 (117) 96 11/12/17 20:00 76 11/12/17 16:00 97.2 61 18 153/83 (106) 97 11/12/17 12:00 96.6 62 18 143/91 (108) 98 I/O 11/12/17 11/12/17 11/12/17 11/13/17 11/13/17 11/13/17 07:00 15:00 23:00 07:00 15:00 23:00 Intake Total 240 ml Output Total 3900 ml Balance 240 ml -3900 ml Intake Oral 240 ml Output Urine Total 3900 ml # Voids 2 4 # Bowel Movements 0 1 Result Diagram: 11/11/17 0654 11/12/17 0630 Imaging Last Impressions Chest X-Ray 11/09/17 0000 Signed Impressions: Service Date/Time: Thursday, November 09, 2017 12:51 - CONCLUSION: No acute disease. Juan C Denise MD FACR Abdomen/Pelvis CT 11/09/17 0000 Signed Impressions: Service Date/Time: Thursday, November 09, 2017 18:38 - CONCLUSION: 1. Small bilateral pleural effusions with mild edema pattern and subsegmental consolidation in the right lower lobe. 2. No acute findings within the abdomen and pelvis. Small nonobstructing right renal calculi. Small cyst central liver. No bowel obstruction, free fluid or free air. 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 Hendricks ff plan for CARMENZA- Dr. Powell today Type 2 diabetes mellitus uncontrolled Holding home oral anti-hyperglycemics SSI with Accu-Chek. Monitor blood glucose A1C pending DC Levemir- change to 70/30 bid 10 units bid and adjust restart Metformin in1-2 days Hypertension, uncontrolled Patient started on lisinopril 10 mg daily bid , hydrochlorothiazide 25 amlodipine 10 mg daily prn Vasotec and clonidine as needed for optimization Hyperlipidemia Continue home statin elevated lipase-without abdominal pain- continue trending lipase level, continue iv fluid Mirta Tolbert MD Nov 13, 2017 10:12
--- NOTE | 2017-11-13 12:04 | HHI.IDPN ---
Note Infectious Disease Note Patient says he feels okay Afebrile. No chills. To have CARMENZA today. Blood culture ID - staph hemolyticus in both sets. Repeat blood culture negative. Mom reported that patient was noted to have "hole in the heart" or some other heart abnormality as a child. In high school he had to have cardiac test for sports. 46-year-old white male who presented to the emergency department yesterday evening with flu-like illness. The patient describes chills, headaches, nausea and fever for approximately seven days prior. The patient states that he started feeling sick suddenly on October 29. He started experiencing chills and aches in his knees and ankles, and nausea. He states that he would take Tylenol and Aleve and the fever went away but would come back so, therefore, he was constantly taking the anti-pyretic medications. PAST MEDICAL HISTORY Diabetes mellitus, hypertension. ALLERGIES NO KNOWN DRUG ALLERGIES. MEDICATIONS Ceftriaxone. OBJECTIVE: Vital Signs Date Time Temp Pulse Resp B/P (MAP) Pulse Ox O2 Delivery O2 Flow Rate FiO2 11/13/17 08:00 96.8 54 17 170/91 (117) 97 11/13/17 04:48 96.6 68 18 133/87 (102) 97 11/13/17 04:00 60 11/13/17 00:09 54 11/13/17 00:00 96.7 54 18 155/92 (113) 98 11/12/17 20:00 98.1 70 18 166/93 (117) 96 11/12/17 20:00 76 11/12/17 16:00 97.2 61 18 153/83 (106) 97 Laboratory Tests Test 11/12/17 06:30 11/13/17 06:00 Blood Urea Nitrogen 16 MG/DL Creatinine 1.02 MG/DL Random Glucose 269 MG/DL Total Protein 7.6 GM/DL Albumin 2.6 GM/DL Calcium Level 8.5 MG/DL Alkaline Phosphatase 95 U/L Aspartate Amino Transf (AST/SGOT) 30 U/L Alanine Aminotransferase (ALT/SGPT) 58 U/L Total Bilirubin 0.4 MG/DL Sodium Level 133 MEQ/L Potassium Level 4.0 MEQ/L Chloride Level 102 MEQ/L Carbon Dioxide Level 22.0 MEQ/L Anion Gap 9 MEQ/L Estimat Glomerular Filtration Rate 79 ML/MIN Lipase 432 U/L PHYSICAL EXAMINATION: GENERAL: No acute distress. HEENT: Extraocular movements grossly intact, pupils reactive to light. No icterus. Oropharynx has moist mucosa. Neck: Supple without adenopathy. Lungs: Clear breath sounds. Heart: Regular S1-S2. Heart sounds distant. No audible murmurs, rubs or gallops. Abdomen: Bowel sounds present, obese, the bowel sounds are diminished, nontender. Extremities: No clubbing, cyanosis or edema. Skin: No rash. Neuro: No gross focal findings. Psych: Calm and cooperative. IMPRESSION 1. Sepsis with staph hemolyticus. No definite source. 2. Fever. Resolved. 3. Elevated lipase. 4. Acute kidney disease. improved. RECOMMENDATIONS 1. Continue ceftriaxone. 2. CARMENZA to evaluate for endocarditis. Discussed with Dr Jose Montes De Oca. To be scheduled for Today. If CARMENZA is negative, he can be discharged IV Ceftriaxone until 11/18. If valvular lesion is present he need treatment to 12/19/17. and possibly surgical eval before discharge. Orders for antibiotics for discharge will be written on infusion form. Case management to arrange antibiotics. Rj Hendricks MD Nov 13, 2017 12:04
--- NOTE | 2017-11-13 12:06 | HHI.FF ---
Infusion Therapy Location of Infusion Therapy: Home Health Care IV Infusion Order Patient Information Patient Weight 115.3 kg Diagnosis: Diagnosis sepsis Coded Allergies: No Known Allergies (Unverified , 11/06/17) Administer Medication Ceftriaxone 2 grams IV q 24 hours Stop Treatment: Nov 18, 2017 Additional Information Venous access: PICC Line Additional Instructions [x] Peripheral flush and dressing changes per protocol [x] Implanted port and central vessel liner: * Implanted port: 10 ml Normal Saline followed by 5 ml Heparin 100 units/ml Heparin flush after each use and monthly to maintain. [] May leave port accessed during therapy. [] May leave peripheral site accessed for duration of therapy. [x] If patient has SOB or respiratory distress, check oxygen saturation. If less than 90% or clinical signs of respiratory distress, administer oxygen at 2 L/min. via nasal cannula and notify physician. [x] Anaphylaxis/Reaction orders: * Stop infusion. * Keep IV line open with saline flush. * Notify physician. * Monitor vital signs every 15 minutes until symptoms resolve. * Check Oxygen saturation; Oxygen at 2 L/min. via nasal cannula if less than 90% or clinical signs of respiratory distress. * Administer diphenhydramine (Benadryl) 25 mg IV STAT, (unless patient has received as pre-med). May repeat once, if necessary. * Solu-Cortef 250 mg IVP over 30-60 seconds, use 100 mg vials for each dissolution. * Epinephrine (1mg/1 ml) 0.3 mg subcutaneously or IVP now with any signs of respiratory distress. * Check with physician for new additional pre-med orders if patient is re- challenged or re-treated. [x] May remove PICC line when treatment complete, after confirming with Physician. [x] If the patient is admitted to the hospital, the ED, or transferred via [facility] , complete transfer form including medication reconciliation order sheet. Laboratory Tests Weekly Labs: Rj Ambrocio MD Nov 13, 2017 12:06
--- NOTE | 2017-11-13 15:05 | HHI.FF ---
Face to Face Verification Diagnosis: (1) Sepsis Home Health Nursing Order: Medical education Signs/symptoms of disease process Medication education-adverse effect I have seen patient Bautista Lynn on 11/13/17. My clinical findings support the need for the requested home health care services because: Ltd mobility - disease progression Infection w/ risk of complications I certify that my clinical findings support that this patient is homebound because: Poor cardiac reserve home iv antiibotics Mirta Tolbert MD Nov 13, 2017 15:05
--- NOTE | 2017-11-13 15:06 | ECHRPT ---
Indication: veg CONCLUSIONS normal lv size and wall thicknes, ef=60% no evidence of endocarditis negative saline contrast bubble study into the right atrium normal appearing ascending and descending thoracic aneurysm BP: / HR: Rhythm: Technical Quality: Medications Complications Proc. Components Jose Montes De Oca MD, FACC, FSCAI (Electronically Signed) Final Date:13 November 2017 15:04
[2017-11-13] MEDS: INSULIN HUMAN NPH/R 70/30 1,000 UNITS/10 ML VIAL SQ SCH (17:00)
[2017-11-13] MEDS: SODIUM CHLOR 0.9% 1000 ML INJ 1,000 ML IV SCH (17:23)
[2017-11-13] MEDS: ATORVASTATIN 20 MG TAB PO SCH (21:15)
[2017-11-14] VITALS: BP 119/80; PULSE 70; RESP 18; TEMP 97.8; O2SAT 97
[2017-11-14 00:06] VITALS: PULSE 74
[2017-11-14 04:00] VITALS: BP 109/56; PULSE 79; RESP 20; TEMP 96.8; O2SAT 96
[2017-11-14 04:08] VITALS: PULSE 71
[2017-11-14] MEDS: cefTRIAXone INJ 2,000 MG in SODIUM CHLORIDE 0.9% INJ 100 ML IV SCH (05:04)
[2017-11-14 08:00] VITALS: BP 116/79; PULSE 70; RESP 16; TEMP 96.6; O2SAT 97
[2017-11-14] MEDS: INSULIN HUMAN NPH/R 70/30 1,000 UNITS/10 ML VIAL SQ SCH (08:00)
[2017-11-14] MEDS: INSULIN ASPART SUPPLEMENTAL SCALE SQ SCH ×2 (08:00→12:00)
[2017-11-14] MEDS: SODIUM CHLORIDE 0.9% FLUSH 10 ML FLUSH IV FLUSH SCH (09:00)
[2017-11-14] MEDS ORDERED: HYDROCHLOROTHIAZIDE 25 MG TAB PO SCH (09:00)
[2017-11-14] MEDS: HYDROCHLOROTHIAZIDE 12.5 MG CAP PO SCH (09:01)
[2017-11-14] MEDS: DOCUSATE SODIUM 50 MG/SENNA 8.6 MG TAB PO SCH (09:02)
[2017-11-14] MEDS: LISINOPRIL 10 MG TAB PO SCH (09:02)
[2017-11-14] MEDS: NEBIVOLOL 5 MG TAB PO SCH (09:02)
[2017-11-14] MEDS: PANTOPRAZOLE SOD 40 MG DELAYED RELEASE TAB PO SCH (09:03)
[2017-11-14 09:47] LABS: BICARBONATE 24.4 MEQ/L (21.0-32.0); CALCIUM 8.3 MG/DL (8.5-10.1); CREATININE 1.01 MG/DL (0.60-1.30); MAGNESIUM 1.9 MG/DL (1.5-2.5)
--- NOTE | 2017-11-14 10:48 | HHI.PR ---
Subjective Remarks doing well no complains feels great seen with at bedside d/w them about changed in diabetic management- inuslin- patient refused to take it states will stick to his current regimen and have Dr. Dowd PCP adjust Objective Vitals Vital Signs Date Time Temp Pulse Resp B/P (MAP) Pulse Ox O2 Delivery O2 Flow Rate FiO2 11/14/17 08:00 96.6 70 16 116/79 (91) 97 11/14/17 04:08 71 11/14/17 04:00 96.8 79 20 109/56 (73) 96 11/14/17 00:06 74 11/14/17 00:00 97.8 70 18 119/80 (93) 97 11/13/17 20:06 76 11/13/17 20:00 97.2 75 18 133/84 (100) 98 11/13/17 16:00 96.8 69 17 128/86 (100) 98 11/13/17 12:00 96.7 64 18 147/97 (114) 98 I/O 11/13/17 11/13/17 11/13/17 11/14/17 11/14/17 11/14/17 07:00 15:00 23:00 07:00 15:00 23:00 Intake Total 720 ml 580 ml Output Total 3900 ml 2775 ml 1100 ml Balance -3900 ml -2055 ml -520 ml Intake Oral 720 ml 480 ml IV Total 100 ml Output Urine Total 3900 ml 2775 ml 1100 ml # Bowel Movements 1 0 Result Diagram: 11/11/17 0654 11/14/17 0742 Imaging Last Impressions Chest X-Ray 11/09/17 0000 Signed Impressions: Service Date/Time: Thursday, November 09, 2017 12:51 - CONCLUSION: No acute disease. Juan C Denise MD FACR Abdomen/Pelvis CT 11/09/17 0000 Signed Impressions: Service Date/Time: Thursday, November 09, 2017 18:38 - CONCLUSION: 1. Small bilateral pleural effusions with mild edema pattern and subsegmental consolidation in the right lower lobe. 2. No acute findings within the abdomen and pelvis. Small nonobstructing right renal calculi. Small cyst central liver. No bowel obstruction, free fluid or free air. 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 Hendricks ff S/P TEE_ negative Type 2 diabetes mellitus uncontrolled Holding home oral anti-hyperglycemics SSI with Accu-Chek. Monitor blood glucose A1C pending Patient refused insulin regimen- wants to consult with his PCP first restart Metformin 500 mg po bid restart hisnoral hypoglycemics d/w him and - his A1C Hypertension, better amlodipine 10 mg daily resumed his home regimen - meds prn Vasotec and clonidine as needed for optimization Hyperlipidemia Continue home statin elevated lipase-without abdominal pain- continue trending lipase level Advise ff up with a PCP for HTN. DM DC today Mirta Tolbert MD Nov 14, 2017 10:48
[2017-11-14] MEDS ORDERED: AMLO10 PO (11:02)
--- NOTE | 2017-11-14 11:04 | HHI.DS ---
Discharge Summary Admission Date Nov 07, 2017 at 10:16 Discharge Date: Nov 14, 2017 Admitting Diagnosis bandemia, elevated creatinine, headache, concern for meningitis (1) Sepsis due to Staphylococcus hemolyticus ICD Code: A41.1 - Sepsis due to other specified staphylococcus Diagnosis: Principal (2) Acute kidney injury ICD Code: N17.9 - Acute kidney failure, unspecified Diagnosis: Principal (3) Hypertension ICD Code: I10 - Essential (primary) hypertension Diagnosis: Secondary (4) DM Diagnosis: Secondary Procedures 11/13- CARMENZA Brief History - From Admission 46-year-old male with a past medical history significant for hypertension and type 2 diabetes mellitus presents to the emergency department with a seven-day history of fever/chills and generalized malaise. The patient reports he has had a headache with photophobia 3 days. He also reports decreased by mouth intake secondary to not feeling well. There was concern for meningitis in the emergency department however the patient refused LP. Lab values significant for a bandemia with 77% neutrophils, WBC 7.6. Creatinine 1.70, baseline 0.88 done in August of this year. BUN 43. Lactic acid within normal limits. Patient with temperature of 100.1, pulse 92, respiratory rate 18, blood pressure 119/66, pulse ox 95% on room air. CBC/BMP: 11/11/17 0654 11/14/17 0742 Significant Findings Laboratory Tests Test 11/12/17 06:30 11/13/17 06:00 11/14/17 07:42 Random Glucose 269 MG/DL (74-106) 268 MG/DL (74-106) Albumin 2.6 GM/DL (3.4-5.0) Sodium Level 133 MEQ/L (136-145) 133 MEQ/L (136-145) Estimat Glomerular Filtration Rate 79 ML/MIN (>89) 80 ML/MIN (>89) Lipase 432 U/L (73-393) Hemoglobin A1c 8.0 % (4.3-6.0) Blood Urea Nitrogen 19 MG/DL (7-18) Calcium Level 8.3 MG/DL (8.5-10.1) Imaging Last Impressions Chest X-Ray 11/09/17 0000 Signed Impressions: Service Date/Time: Thursday, November 09, 2017 12:51 - CONCLUSION: No acute disease. Juan C Denise MD FACR Abdomen/Pelvis CT 11/09/17 0000 Signed Impressions: Service Date/Time: Thursday, November 09, 2017 18:38 - CONCLUSION: 1. Small bilateral pleural effusions with mild edema pattern and subsegmental consolidation in the right lower lobe. 2. No acute findings within the abdomen and pelvis. Small nonobstructing right renal calculi. Small cyst central liver. No bowel obstruction, free fluid or free air. 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 Hendricks ff S/P TEE_ negative Type 2 diabetes mellitus uncontrolled Holding home oral anti-hyperglycemics SSI with Accu-Chek. Monitor blood glucose A1C pending Patient refused insulin regimen- wants to consult with his PCP first restart Metformin 500 mg po bid restart hisnoral hypoglycemics d/w him and - his A1C Hypertension, better amlodipine 10 mg daily resumed his home regimen - meds prn Vasotec and clonidine as needed for optimization Hyperlipidemia Continue home statin elevated lipase-without abdominal pain- continue trending lipase level Advise ff up with a PCP for HTN. DM DC today Pt Condition on Discharge: Stable Discharge Disposition: Disch w/ Home Health Serv Discharge Time: <= 30 minutes Discharge Instructions DIET: Follow Instructions for: Heart Healthy Diet, Diabetic Diet Speech Therapy-Diet Recommends: Regular Activities you can perform: Weight Bearing as [place] Follow up Referrals: PCP Follow-up - 2-[address] Dowd New Medications: Amlodipine (Norvasc) 10 Mg Tab 10 MG PO DAILY for HTN for 30 Days, #30 TAB Continued Medications: Atorvastatin (Atorvastatin) 20 Mg Tab 20 MG PO HS for Cholesterol Management, #30 TAB 0 Refills Glyburide (Glyburide) 5 Mg Tab 5 MG PO BID for Blood Sugar Management, #60 TAB 0 Refills Take with meals at the same time each day Lisinopril-Hctz (Lisinopril-Hctz) 10-12.5 Mg Tab 1 TAB PO DAILY for Blood Pressure Management, #30 TAB 0 Refills Metformin (Metformin) 500 Mg Tab 500 MG PO BIDPC for Blood Sugar Management, #60 TAB 0 Refills Nebivolol (Bystolic) 20 Mg Tab 20 MG PO DAILY for Blood Pressure Management, #30 TAB 0 Refills Pioglitazone (Pioglitazone) 15 Mg Tab 15 MG PO DAILY for Blood Sugar Management, #30 TAB 0 Refills Mirta Tolbert MD Nov 14, 2017 11:04
[2017-11-14] MEDS: SODIUM CHLOR 0.9% 1000 ML INJ 1,000 ML IV SCH (11:10)
[2017-11-14 12:00] VITALS: BP 127/83; PULSE 75; RESP 17; TEMP 96.3; O2SAT 97
[2017-11-14] MEDS ORDERED: metFORMIN HCL 500 MG TAB PO SCH (18:00)
== END 2017-11-14 13:40 | disposition home health service (06) | DRG 872 ==
LOC: NEPC 13:53 → NEDA 19:16 → NEPFCDU 20:47 → OBSVTOIN 11-07 10:16 → N07B 11-07 11:44
PROVIDERS: ADMIT Internal Medicine; ATTEND Internal Medicine
PROC: B246ZZ4 Ultrasonography of Right and Left Heart, Transesophageal (ICD-10-PCS; principal; 2017-11-13)
PROC: 05HD33Z Insertion of Infusion Device into Right Cephalic Vein, Percutaneous Approach (ICD-10-PCS; 2017-11-14)
DX: A41.1 Sepsis due to other specified staphylococcus (principal); N17.9 Acute kidney failure, unspecified; D69.6 Thrombocytopenia, unspecified; E11.65 Type 2 diabetes mellitus with hyperglycemia; E86.0 Dehydration; I10 Essential (primary) hypertension; G44.89 Other headache syndrome; H53.149 Visual discomfort, unspecified; E78.5 Hyperlipidemia, unspecified; R79.89 Other specified abnormal findings of blood chemistry; R74.8 Abnormal levels of other serum enzymes; I44.0 Atrioventricular block, first degree; Z79.899 Other long term (current) drug therapy; Z79.84 Long term (current) use of oral hypoglycemic drugs
CPT/HCPCS: 36569; 71046; 74176; 76937; 80048; 80053; 80202; 81001; 82948; 83036; 83605; 83690; 83735; 83880; 85007; 85025; 85027; 85610; 85730; 86403; 87040; 87077; 87186; 87205; 87804; 93005; 93306; 93312; 93320; 93325; 96361; 96365; 96375; G0378; J0696; J0780; J1815; J2405; J3370; J7030; J7040; Q9963